=== PATIENT | male | born 1980 | race Two or more races ===

== ENCOUNTER 2025-06-17 10:38 | Inpatient (IN) | payer MEDICAID, OTHER ==
[~2025-06-17] VITALS: Ht 162.6 cm; Wt 117.8 kg
--- NOTE | 2025-06-17 10:55 | ED.PDOC ---
GI ASSESSMENT HPI Comments 44 y/o M, presents to the ED for CC of abdominal pain. Patient states, he has been experiencing symptoms of abdominal pain with associated distension, nausea, and vomiting x1day. Patient describes, emesis to be "yellow" in appearance. Patient denies melena, fever, chills, or diarrhea. Chief Complaint: Abdominal Pain Time Seen by MD: 10:55 Reviewed Notes: Nurses Notes, Medications, Allergies Allergies: Coded Allergies: NO KNOWN ALLERGIES (Unverified , 06/17/25) Information Source: Patient Mode of Arrival: Ambulatory Timing: Days Duration: Since onset Prehospital treatment: None Vomitus: Watery Stool: Normal Severity: Moderate Recent: None Recent Hx of: Abdominal Operations Pain Location: Diffuse Modifying Factors: Nothing Associated sign and symptoms: Nausea, Vomiting, Abdominal Pain Past Medical History PAST MEDICAL HISTORY: Denies Surgical History (Other): Kidney transplant recipient Family History Family History: Unknown Social History Smoker: Non-Smoker Alcohol: Denies ETOH Use Drugs: Denies Drug Use Lives In: Home Constitutional: denies: chills, diaphoresis, fatigue, fever, malaise, sweats, weakness, others EENTM: denies: blurred vision, double vision, ear bleeding, ear discharge, ear drainage, ear pain, ear ringing, eye pain, eye redness, hearing loss, mouth pain, mouth swelling, nasal discharge, nose bleeding, nose congestion, nose pain, photophobia, tearing, throat pain, throat swelling, voice changes, others Respiratory: denies: cough, hemoptysis, orthopnea, SOB at rest, shortness of breath, SOB with excertion, stridor, wheezing, others Cardiovascular: denies: chest pain, dizzy spells, diaphoresis, Dyspnea on exertion, edema, irregular heart beat, left arm pain, lightheadedness, palpitations, PND, syncope, others Gastrointestinal: reports: abdominal pain, nausea, vomiting; denies: abdomen distended, blood streaked bowels, constipated, diarrhea, dysphagia, difficulty swallowing, hematemesis, melena, poor appetite, poor fluid intake, rectal bleeding, rectal pain, others Genitourinary: denies: burning, dysuria, flank pain, frequency, hematuria, incontinence, penile discharge, penile sore, pain, testicle pain, testicle swelling, urgency, others Neurological: denies: dizziness, fainting, headache, left sided numbness, left sided weakness, numbness, paresthesia, pre-existing deficit, right sided numbness, right sided weakness, seizure, speech problems, tingling, tremors, weakness, others Musculoskeletal: denies: back pain, gout, joint pain, joint swelling, muscle pain, muscle stiffness, neck pain, others Integumetry: denies: bruises, change in color, change in hair/nails, dryness, laceration, lesions, lumps, rash, wounds, others Allergic/Immunocompromised: denies: Difficulty Healing, Frequent Infections, Hives, Itching, others Hematologic/Lymphatic: denies: anemia, blood clots, easy bleeding, easy bruising, swollen glands, others Endocrine: denies: excessive hunger, excessive sweating, excessive thirst, excessive urination, flushing, intolerance to cold, intolerance to heat, unexplained weight gain, unexplained weight loss, others Psychiatric: denies: anxiety, bipolar disorder, depression, hopeless, panic disorder, schizophrenia, sleepless, suicidal, others All Other Systems: Reviewed and Negative Physical Exam General Appearance: No Apparent Distress, Normal HEENT: Normal ENT Inspection, Pharynx Normal Neck: Full Range of Motion, Non-Tender, Normal, Normal Inspection Respiratory: Chest Non-Tender, Lungs Clear, No Accessory Muscle Use, No Respiratory Distress, Normal Breath Sounds Cardiovascular: No Edema, No Murmur, No Gallop, Normal Peripheral Pulses, Regular Rate/Rhythm Breast Exam: Deferred Gastrointestinal: Diffuse, No Organomegaly, No Pulsatile Mass, Normal Bowel Sounds, Soft, Tenderness Genitalia: Deferred Pelvic: Deferred Rectal: Deferred Extremities: No calf tenderness, Normal capillary refill, Normal inspection, Normal range of motion, Non-tender, No pedal edema Musculoskeletal : Apperance: Normal Neurologic: Alert, temperer II-XII nml as Tested, No Motor Deficits, Normal Affect, Normal Mood, No Sensory Deficits Cerebellar Function: Normal Reflexes: Normal Skin: Dry, Normal Color, Warm Lymphatic: No Adenopathy Was a procedure done? Was a procedure done?: No GI differential Dx Differential Diagnosis: Gastritis/PUD, Gastroenteritis, Electrolyte Imbalance, Bacterial, Viral X-Ray, Labs, Meds, VS Vital Signs Date Time Temp Pulse Resp B/P (MAP) Pulse Ox O2 Delivery O2 Flow Rate FiO2 06/17/25 13:30 98.7 87 14 167/97 (120) 97 98.7 06/17/25 13:25 87 14 167/97 06/17/25 11:42 104 20 171/100 06/17/25 11:30 104 20 96 Room Air* 0 21 06/17/25 11:26 98.4 100 20 171/100 (123) 98 98.4 06/17/25 10:40 98.8 112 15 189/115 98 98.8 Lab Test 06/17/25 13:19 06/17/25 11:35 Range/Units Prothrombin Time Pending Prothrombin Time INR Pending Activated Partial Thromboplast Time Pending Lactic Acid Level Pending White Blood Count 18.4 H 4.4-10.8 10^3/uL Red Blood Count 5.49 4.5-5.90 10^6/uL Hemoglobin 15.2 13.5-17.5 g/dL Hematocrit 45.1 41.0-53.0 % Mean Corpuscular Volume 82.2 80.0-100.0 fL Mean Corpuscular Hemoglobin 27.7 L 28.0-32.0 pg Mean Corpuscular Hemoglobin Concent 33.7 32.0-36.0 g/dL Red Cell Distribution Width 14.0 11.8-14.3 % Platelet Count 267 140-450 10^3/uL Mean Platelet Volume 9.6 6.9-10.8 fL Neutrophils (%) (Auto) 93.2 H 37.0-80.0 % Lymphocytes (%) (Auto) 3.7 L 10.0-50.0 % Monocytes (%) (Auto) 2.4 0.0-12.0 % Eosinophils (%) (Auto) 0.1 0.0-7.0 % Basophils (%) (Auto) 0.6 0.0-2.0 % Neutrophils # (Auto) 17.2 H 1.6-8.6 10 ^3/uL Lymphocytes # (Auto) 0.7 0.4-5.4 10 ^3/uL Monocytes # (Auto) 0.4 0-1.3 10 ^3/uL Eosinophils # (Auto) 0 0-0.8 10 ^3/uL Basophils # (Auto) 0.1 0-0.2 10 ^3/uL Nucleated Red Blood Cells 0.1 % Sodium Level 139 136-145 mmol/L Potassium Level 4.5 3.5-5.1 mmol/L Chloride Level 102 98-107 mmol/L Carbon Dioxide Level 22 20-31 mmol/L Anion Gap 15 5-15 Blood Urea Nitrogen 28 H 9-23 mg/dL Creatinine 2.35 H 0.700-1.30 mg/dL Glomerular Filtration Rate Calc 34 >90 mL/min BUN/Creatinine Ratio 11.9 10.0-20.0 Serum Glucose 193 H 74-106 mg/dL Calcium Level 9.8 8.7-10.4 mg/dL Total Bilirubin 0.5 0.2-1.0 mg/dL Aspartate Amino Transferase (AST) 19 13-40 U/L Alanine Aminotransferase (ALT) 19 7-40 U/L Alkaline Phosphatase 207 H 46-116 U/L Troponin I High Sensitivity < 3 L </=54 ng/L Total Protein 8.0 5.7-8.2 g/dL Albumin 4.6 3.2-4.8 g/dL Lipase 37 12-53 U/L Current Medications Medications (Trade) Dose Ordered Sig/Feng Route Start Time Stop Time Status Last Admin Sodium Chloride 1,000 ml @ 1,000 mls/hr Q1H ONCE IV 06/17/25 11:30 06/17/25 12:29 DC 06/17/25 11:42 Morphine Sulfate 4 mg ONCE ONCE IV 06/17/25 11:30 06/17/25 11:31 DC 06/17/25 11:42 Ondansetron HCl (Zofran) 4 mg ONCE ONCE IV 06/17/25 11:30 06/17/25 11:31 DC 06/17/25 11:42 Lactated Ringer's 1,800 ml @ 1,800 mls/hr ONCE ONCE IV 06/17/25 12:30 06/17/25 13:29 DC 06/17/25 13:20 Cefepime HCl 50 ml @ 50 mls/hr ONCE ONCE IV 06/17/25 13:30 06/17/25 14:29 06/17/25 13:[address] [address] Ph: [phone] DIAGNOSTIC IMAGING Diagnostic Imaging Report : [id number] Signed PATIENT: MARÍA GROSS ACCT: [id number] UNIT: [id number] : 1980 LOC: ER ROOM / BED: / AGE / SEX: 44 / M ADM STATUS: REG ER SERVICE 1225 ORDERING PHYSICIAN: YURI HUANG MD PROCEDURE(s): ABPL - CT AB PEL WO CON-NO ORAL OR IV REASON: abdominal pain ORDER NUMBER(s): [id number], ACCESSION NUMBER(s): [id number] Exam: CT CT AB PEL WO CON-NO ORAL OR IV History: abdominal pain Comparison Study: None Technique: Multidetector spiral CT of the abdomen and pelvis was performed from lung bases to pubic symphysis. Imaging was performed without intravenous contrast. Coronal and sagittal multiplanar reformats were obtained from the axial data set by the technologist. Radiation Dose : 1. Abdomen/Pelvis: CTDIvol 24.97 mGy, DLP 1428.54 mGy*cm. Findings: Evaluation of vasculature and solid organs is limited due to lack of intravenous contrast use. Lung Bases: Lung bases are clear. Visualized portions of the heart and pericardium are unremarkable. Liver: The liver is normal in size. No focal lesions. Gallbladder and Biliary Tree: The gallbladder is surgically absent. No intrahepatic or extrahepatic biliary ductal dilatation. Spleen: Unremarkable Pancreas: The pancreas is grossly unremarkable. Adrenal Glands: Unremarkable Kidneys: Bilateral [place] renal atrophy. Right lower quadrant renal transplant. No hydronephrosis. GI tract: The stomach is grossly normal in appearance. There are dilated fluid- filled small bowel loops measuring up to 3.6 cm. There is abrupt transition to collapsed small bowel loops in the right lower quadrant indicating a transition point. The transition is adjacent to the right renal transplant. Scattered stool throughout the colon. No acute appendicitis. Peritoneum/mesentery/retroperitoneum. There is fat stranding in the right lower quadrant. No evidence of free intraperitoneal air. No ascites. No evidence of suspicious lymphadenopathy. Abdominal Wall: Unremarkable. Vasculature: The visualized abdominal aorta is normal in size and caliber. Evaluation of abdominal and pelvic vessels is limited due to lack of intravenous contrast. Urinary Bladder: Grossly unremarkable for degree of distention. Pelvic Organs: Unremarkable Musculoskeletal: No aggressive focal bony lesions, acute fractures or dislocation. Sclerosis in the right femoral head. IMPRESSION: 1. Small bowel obstruction with transition point in the right lower quadrant adjacent to the right renal transplant. 2. Right femoral head sclerosis may represent avascular necrosis. 3. No hydronephrosis or acute abnormality in the right lower quadrant renal transplant. 4. Cholecystectomy. ATED BY: ANNIE WILSON MD DICTATED DATE/TIME: 06/17/25 130 SIGNED BY: ANNIE WILSON MD SIGNED DATE/TIME: 06/17/25 130 CC: Time of 1ST Reevaluation: 11:25 Reevaluation 1ST: Unchanged Patient Education/Counseling: Diagnosis, Treatment Family Education/Counseling: No Family Present SEPSIS Sepsis Screen Date sepsis recognized/suspect: Jun 17, 2025 Time Sepsis recognized/suspect: 104 Recent Procedure: No On Antibiotic Therapy: No Respiratory Rate >20: No Heart Rate >90: No Temp<36 C (96.8 F) or >38.3 C: No SBP <90 or MAP <65 mmHG: No New Acute Mental Status Change: No Is the patient on CPAP, BIPAP,: No Physician Orders PTPTT (06/17/25 12:25) Blood Culture (06/17/25 12:25) Lactic Acid W/ Reflex Order (06/17/25 14:00) Notify Md If Map <65 Or Bp<90 (06/17/25 12:25) If Map<65 Start Vasopressor (06/17/25 12:25) Sepsis Reassesment After Fluid (06/17/25 13:25) Ct Ab Pel Wo Con-No Oral Or Iv (06/17/25 12:25) Cefepime 1gm/50ml (Maxipime 1gm/50ml) (06/17/25 13:30) Ng To Lis (06/17/25 14:03) * Surgical Consult (06/17/25 ) Vital Signs Date Time Temp Pulse Resp B/P (MAP) Pulse Ox O2 Delivery O2 Flow Rate FiO2 06/17/25 13:30 98.7 87 14 167/97 (120) 97 98.7 06/17/25 13:25 87 14 167/97 06/17/25 11:42 104 20 171/100 06/17/25 11:30 104 20 96 Room Air* 0 21 06/17/25 11:26 98.4 100 20 171/100 (123) 98 98.4 06/17/25 10:40 98.8 112 15 189/115 98 98.8 Laboratory Tests Test 06/17/25 11:35 06/17/25 13:19 White Blood Count 18.4 10^3/uL (4.4-10.8) H Lactic Acid Level Pending Medications Medications Dose Ordered Sig/Feng Route Start Time Stop Time Status Last Admin Dose Admin Cefepime HCl 50 ml @ 50 mls/hr ONCE ONCE IV 06/17/25 13:30 06/17/25 14:29 06/17/25 13:25 Lactated Ringer's 1,800 ml @ 1,800 mls/hr ONCE ONCE IV 06/17/25 12:30 06/17/25 13:29 DC 06/17/25 13:20 Morphine Sulfate 4 mg ONCE ONCE IV 06/17/25 11:30 06/17/25 11:31 DC 06/17/25 11:42 Ondansetron HCl 4 mg ONCE ONCE IV 06/17/25 11:30 06/17/25 11:31 DC 06/17/25 11:42 Sodium Chloride 1,000 ml @ 1,000 mls/hr Q1H ONCE IV 06/17/25 11:30 06/17/25 12:29 DC 06/17/25 11:42 Departure 1 Departure Time of Disposition: 14:04 (Patient presented with abdominal pain that was concerning for possible appendicits, gastritis, cholecystitis, colitis, gastroenteritis, sbo, or orther possible surgical emergency. Data: 1. I ordered and reviewed the result of at least 3 labs including a CBC, BMP, and Urinalysis. 2. I independently interpreted the following tests: CT Abdomen and Pelvis is concerning for small bowel obstruction.Risk:This patient has a high risk of morbidity due to further diagnostic testing or treatment and may suffer from an acute abdominal process disorder. Workup reveals small bowel obstruction and concern for sepsis and patient should be admitted for further workup. and possible expert consultation. ) Impression: Primary Impression: Small bowel obstruction Additional Impression: Suspected sepsis Disposition: ADMITTED INPATIENT Admit to: Tele Condition: Guarded Critical Care Note Critical Care Time?: Yes Critical care comment: Small-bowel obstruction and suspected sepsis Authorized and Performed by: Yuri Huang MD Total critical care time: Approximately 41 minutes Due to a high probability of clinically significant, life threatening deterioration, the patient required my highest level of preparedness to intervene emergently and I personally spent this critical care time directly and personally managing the patient. This critical care time included obtaining a history; examining the patient; pulse oximetry; ordering and review of studies; arranging urgent treatment with development of a management plan; evaluation of patient's response to treatment; frequent reassessment; and, discussions with other providers. This critical care time was performed to assess and manage the high probability of imminent, life-threatening deterioration that could result in multi-organ failure. It was exclusive of separately billable procedures and treating other patients and teaching time. Please see my other sections and the rest of the note for further information on patient assessment and treatment. Stability Stability form required: No Heart Score Heart Score: Heart Score Response (Comments) Value History N/A 0 EKG N/A 0 Age N/A 0 Risk Factors N/A 0 Troponin N/A 0 Total 0 I personally scribed for YURI HUANG MD ([email or web address]) on 06/17/25 at 10:55. Electronically submitted by Bailey Greene ([email or web address]). I personally scribed for YURI HUANG MD ([email or web address]) on 06/17/25 at 12:04. Electronically submitted by Bailey Greene ([email or web address]). I personally scribed for YURI HUANG MD ([email or web address]) on 06/17/25 at 14:03. Electronically submitted by Bailey Greeen ([email or web address]). YURI HUANG MD Jun 17, 2025 10:55
[2025-06-17 11:30] VITALS: PULSE 104; RESP 20; O2SAT 96
[2025-06-17] MEDS: SODIUM CHLORIDE 0.9% 1,000 ML IV ONE (11:42)
[2025-06-17] MEDS: MORPHINE SULFATE 4 MG/ML SYR/VIAL IV ONE (11:42)
[2025-06-17] MEDS: ONDANSETRON HCL 4 MG/2 ML VIAL IV ONE (11:42)
[2025-06-17 11:57] LABS: Hematocrit 45.1 % (41.0-53.0); Hemoglobin 15.2 g/dL (13.5-17.5); Mean Corpuscular Hemoglobin 27.7 pg (28.0-32.0); Mean Corpuscular Volume 82.2 fL (80.0-100.0); Nucleated Red Blood Cells % 0.1 %
[2025-06-17 12:14] LABS: Alanine Aminotransferase 19 U/L (7-40); Albumin 4.6 g/dL (3.2-4.8); Alkaline Phosphatase 207 U/L (46-116); Anion Gap 15 (5-15); BUN/Creatinine Ratio 11.9 (10.0-20.0); Bilirubin, Total 0.5 mg/dL (0.2-1.0); Blood Urea Nitrogen 28 mg/dL (9-23); Calcium 9.8 mg/dL (8.7-10.4); Carbon Dioxide 22 mmol/L (20-31); Chloride 102 mmol/L (98-107); Glucose 193 mg/dL (74-106); Lipase 37 U/L (12-53); Potassium 4.5 mmol/L (3.5-5.1); Sodium 139 mmol/L (136-145); Total Protein 8.0 g/dL (5.7-8.2)
--- NOTE | 2025-06-17 13:03 | DVH ---
Exam: CT CT AB PEL WO CON-NO ORAL OR IV History: abdominal pain Comparison Study: None Technique: Multidetector spiral CT of the abdomen and pelvis was performed from lung bases to pubic symphysis. Imaging was performed without intravenous contrast. Coronal and sagittal multiplanar reformats were obtained from the axial data set by the technologist. Radiation Dose : 1. Abdomen/Pelvis: CTDIvol 24.97 mGy, DLP 1428.54 mGy*cm. Findings: Evaluation of vasculature and solid organs is limited due to lack of intravenous contrast use. Lung Bases: Lung bases are clear. Visualized portions of the heart and pericardium are unremarkable. Liver: The liver is normal in size. No focal lesions. Gallbladder and Biliary Tree: The gallbladder is surgically absent. No intrahepatic or extrahepatic biliary ductal dilatation. Spleen: Unremarkable Pancreas: The pancreas is grossly unremarkable. Adrenal Glands: Unremarkable Kidneys: Bilateral lower [place] renal atrophy. Right lower quadrant renal transplant. No hydronephrosis. GI tract: The stomach is grossly normal in appearance. There are dilated fluid- filled small bowel loops measuring up to 3.6 cm. There is abrupt transition to collapsed small bowel loops in the right lower quadrant indicating a transition point. The transition is adjacent to the right renal transplant. Scattered stool throughout the colon. No acute appendicitis. Peritoneum/mesentery/retroperitoneum. There is fat stranding in the right lower quadrant. No evidence of free intraperitoneal air. No ascites. No evidence of suspicious lymphadenopathy. Abdominal Wall: Unremarkable. Vasculature: The visualized abdominal aorta is normal in size and caliber. Evaluation of abdominal and pelvic vessels is limited due to lack of intravenous contrast. Urinary Bladder: Grossly unremarkable for degree of distention. Pelvic Organs: Unremarkable Musculoskeletal: No aggressive focal bony lesions, acute fractures or dislocation. Sclerosis in the right femoral head. IMPRESSION: 1. Small bowel obstruction with transition point in the right lower quadrant adjacent to the right renal transplant. 2. Right femoral head sclerosis may represent avascular necrosis. 3. No hydronephrosis or acute abnormality in the right lower quadrant renal transplant. 4. Cholecystectomy.
[2025-06-17] MEDS: CEFEPIME 1GM/50ML 50 ML IV ONE ×2 (13:19→13:25)
[2025-06-17] MEDS: LACTATED RINGER'S 1,800 ML IV ONE (13:20)
[2025-06-17 14:15] LABS: INR 0.98 (0.9-1.15); Partial Thromboplastin Time 24.4 SEC (24.5-34.5); Prothrombin Time 10.4 sec (9.3-11.8)
[2025-06-17 14:41] LABS: Lactic Acid w/Reflex 2.3 mmol/L (0.4-2.0)
[2025-06-17] MEDS ORDERED: MORPHINE SULFATE INJ 2 MG/ml SYRG IV PRN (15:30)
--- NOTE | 2025-06-17 17:00 | DVHINCON2 ---
Consultation - Surgical Date Seen: Jun 17, 2025 Referring Physician Reason for Consultation SBO History of Present Illness History of Present Illness Mr. Mederos is a 44-year-old male who presented to the ED with abdominal distention, nausea, vomiting x1 day. Patient has a prior history of small-bowel obstruction for which they did a ex lap and lysis of adhesions. States that before presenting to the hospital his last bowel movement was 2 days, patient regularly has daily BMs. Patient also states that he had a large bowel movement in the a.m. hours while in the hospital. States that his belly is less distended and not painful anymore, he is also passing flatus. Denies any blood in the vomit or stool. Patient also has a history of kidney transplantation, and states he does not have any urine. Patient is currently on sirolimus and mycophenolate. Past Medical/Surgical History Past Medical/Surgical History Past medical history kidney transplant, immunosuppression, SBO, acute rejection of transplant Past surgical history right-sided kidney transplant (2006), SBO due to adhesions and status post exlap Family and Social History Family and Social History Family history noncontributory ETOH occasional T Ob occasional Drugs denies Allergies and medications Allergies: Coded Allergies: NO KNOWN ALLERGIES (Unverified , 06/17/25) Review of systems Review of Systems: Deferred Examination Vital signs Vital Signs Date Time Temp Pulse Resp B/P (MAP) Pulse Ox O2 Delivery O2 Flow Rate FiO2 06/17/25 15:15 98.3 73 15 151/78 (102) 98 98.3 06/17/25 11:30 Room Air* 0 21 Medications Current Medications Medications (Trade) Dose Ordered Sig/Feng Route PRN Reason Start Time Stop Time Status Last Admin Sodium Chloride 1,000 ml @ 100 mls/hr Q10H IV 06/17/25 15:30 Morphine Sulfate 2 mg Q4HPRN PRN IV SEVERE PAIN (7-10 PAIN SCALE) 06/17/25 15:30 Ceftriaxone Sodium 50 ml @ 100 mls/hr DAILY@09 IV 06/18/25 09:00 Metronidazole 100 ml @ 100 mls/hr Q8HR IV 06/17/25 15:30 06/17/25 15:55 Mycophenolate Mofetil (Cellcept) 500 mg BID PO 06/17/25 22:00 Patient Own Medication 1 DAILY PO 06/18/25 10:00 Laboratory Labs Test 06/17/25 15:48 06/17/25 13:35 06/17/25 13:19 06/17/25 11:35 Range/Units Lactic Acid Level 1.9 0.4-2.0 mmol/L Hemoglobin A1c 5.5 <5.7 % A1C Prothrombin Time 10.4 9.3-11.8 sec Prothrombin Time INR 0.98 0.9-1.15 Activated Partial Thromboplast Time 24.4 L 24.5-34.5 SEC White Blood Count 18.4 H 4.4-10.8 10^3/uL Red Blood Count 5.49 4.5-5.90 10^6/uL Hemoglobin 15.2 13.5-17.5 g/dL Hematocrit 45.1 41.0-53.0 % Mean Corpuscular Volume 82.2 80.0-100.0 fL Mean Corpuscular Hemoglobin 27.7 L 28.0-32.0 pg Mean Corpuscular Hemoglobin Concent 33.7 32.0-36.0 g/dL Red Cell Distribution Width 14.0 11.8-14.3 % Platelet Count 267 140-450 10^3/uL Mean Platelet Volume 9.6 6.9-10.8 fL Neutrophils (%) (Auto) 93.2 H 37.0-80.0 % Lymphocytes (%) (Auto) 3.7 L 10.0-50.0 % Monocytes (%) (Auto) 2.4 0.0-12.0 % Eosinophils (%) (Auto) 0.1 0.0-7.0 % Basophils (%) (Auto) 0.6 0.0-2.0 % Neutrophils # (Auto) 17.2 H 1.6-8.6 10 ^3/uL Lymphocytes # (Auto) 0.7 0.4-5.4 10 ^3/uL Monocytes # (Auto) 0.4 0-1.3 10 ^3/uL Eosinophils # (Auto) 0 0-0.8 10 ^3/uL Basophils # (Auto) 0.1 0-0.2 10 ^3/uL Nucleated Red Blood Cells 0.1 % Sodium Level 139 136-145 mmol/L Potassium Level 4.5 3.5-5.1 mmol/L Chloride Level 102 98-107 mmol/L Carbon Dioxide Level 22 20-31 mmol/L Anion Gap 15 5-15 Blood Urea Nitrogen 28 H 9-23 mg/dL Creatinine 2.35 H 0.700-1.30 mg/dL Glomerular Filtration Rate Calc 34 >90 mL/min BUN/Creatinine Ratio 11.9 10.0-20.0 Serum Glucose 193 H 74-106 mg/dL Calcium Level 9.8 8.7-10.4 mg/dL Total Bilirubin 0.5 0.2-1.0 mg/dL Aspartate Amino Transferase (AST) 19 13-40 U/L Alanine Aminotransferase (ALT) 19 7-40 U/L Alkaline Phosphatase 207 H 46-116 U/L Troponin I High Sensitivity < 3 L </=54 ng/L Total Protein 8.0 5.7-8.2 g/dL Albumin 4.6 3.2-4.8 g/dL Lipase 37 12-53 U/L Examination: GENERAL:Normal (AAO x3), HEENT:Normal (NG tube in place with minimal output), LUNGS:Normal (Nonlabored breathing with symmetric expansion), ABDOMEN:Normal (Globose, midline scar healed, right lower quadrant scar healed, soft, depressible, nontender) Problem List/Assessment/Plan Problems: (1) Small bowel obstruction (2) Suspected sepsis Assessment and Plan Mr. Mederos is a 44-year-old male who presented with what appears to be a partial small bowel obstruction, he has a history of small-bowel obstruction for which he received an ex lap in the past. Currently has a NG tube placed and he had a large bowel movement while in the ED. I reviewed the CT scan and there appears to be mildly distended small bowel loops with a possible transition point in the right lower quadrant. Patient also presented with a leukocytosis and elevated blood sugar level, patient denies being diabetic, also his creatinine is 2.35 and he states is normal creatinine is in the 2. I want to rule out UTI versus transplant rejection on this patient. 1. NG tube to LIS 2. NPO 3. No narcotics for pain control, utilizing Tylenol 4. Possible small bowel follow-through in the morning 5. UA 6. Kidney ultrasound Plan discussed with Plan discussed with: Patient Visit Coding Surgery Date of Service if different f: Jun 17, 2025 Billing Provider: ADAM ROLDAN MD Surgery Visit Codes: 93637 - INP CONSULT <110 MIN ADAM ROLDAN MD Jun 17, 2025 17:00
--- NOTE | 2025-06-17 17:08 | DVH ---
EXAM: XY CHEST PORTABLE HISTORY: NG TUBE PLACEMENT VERIFICATION TECHNIQUE: 1 view of the chest COMPARISON: None FINDINGS/IMPRESSION: LUNGS: No pleural effusion, consolidation, or pneumothorax. MEDIASTINUM: Unremarkable. BONES: No acute osseous abnormality. OTHER: Enteric tube extending into the proximal stomach.
[2025-06-17] MEDS ORDERED: ACETAMINOPHEN 325 MG TAB PO PRN (17:30)
[2025-06-17] MEDS: SOD CHL 0.45% 1,000 ML IV SCH (17:52)
--- NOTE | 2025-06-17 17:55 | DVH ---
INDICATION: Transplant evaluation TECHNIQUE: Multiple real-time, duplex, and color Doppler sonographic images of the kidney and renal vasculature were obtained. Color flow and spectral waveform analysis was performed. COMPARISON: None FINDINGS: The transplant kidney is located in the right iliac fossa. It measures 13.5 x 6.9 x 5.7 cm in length. The renal contour, cortical thickness, and echogenicity are normal. There no masses, calcifications, hydronephrosis, or perinephric fluid identified. The vessels were interrogated with color and duplex Doppler. Peak systolic velocity in the transplanted renal artery was measured at 191 cm/sec near the anastomosis. End-diastolic velocity measures 23.2 cm/sec near the anastomosis. Transplant renal vein velocity measured 14.1 cm/sec. IMPRESSION: 1. Right renal transplant kidney appears within normal limits with no hydronephrosis or other abnormality. 2. Peak systolic velocities at the anastomosis of the transplant renal artery is within normal limits. No evidence of stenosis or thrombosis in the transplant renal vein.
--- NOTE | 2025-06-17 18:04 | DVHHP2 ---
History of Present Illness History of Present Illness 44-year-old male with past medical history of hypoplastic kidneys s/p kidney transplant (2006, ), prior peritoneal dialysis and hemodialysis, and history of small bowel obstruction requiring laparotomy in 2013. Patient moved to the area 1.5 months ago and has been taking mycophenolate 1 g BID and sirolimus 2 mg daily with good adherence. He now reports abdominal pain, distension, nausea, and vomiting. He continues to have bowel movements and passed flatus both at home and in the ED. No fevers. On arrival, he was tachycardic but improved to HR 85; blood pressure was elevated at 138/60; he is afebrile. Labs show WBC 18.5, creatinine 2.3, lactate initially 2.3 then 1.9, alkaline phosphatase 207; coagulation studies unremarkable. CT abdomen shows small bowel obstruction with a transition point in the right lower quadrant adjacent to the right renal transplant, and right femoral head sclerosis suggestive of avascular necrosis. He is s/p cholecystectomy. Renal ultrasound shows normal-appearing right renal transplant without hydronephrosis or evidence of stenosis or thrombosis. Surgery recommended NG tube, NPO, no narcotics, and possible small bowel follow-through. He was started on ceftriaxone and metronidazole. UA and nephrology evaluation are pending. Past Medical History Hypoplastic kidneys, kidney transplant 2007 ([place]), prior peritoneal dialysis, prior hemodialysis, history of small bowel obstruction, avascular necrosis of the right femoral head (per imaging), history of gallbladder disease s/p cholecystectomy. Past Surgical History Kidney transplant 2006, cholecystectomy, laparotomy for SBO in 2013. Social History No tobacco, no alcohol, no drugs. Lives at home. Allergies NKDA. Home Medications Mycophenolate 1 g BID, Sirolimus 2 mg daily. Review of Systems ROS negative except as stated in HPI. Review of Systems Allergies: Coded Allergies: NO KNOWN ALLERGIES (Unverified , 06/17/25) Medications Current Medications Medications Dose Ordered Sig/Feng Route Start Time Stop Time Status Last Admin Dose Admin Sodium Chloride 1,000 ml @ 100 mls/hr Q10H IV 06/17/25 15:30 06/17/25 17:52 100 MLS/HR Ceftriaxone Sodium 50 ml @ 100 mls/hr DAILY@09 IV 06/18/25 09:00 Metronidazole 100 ml @ 100 mls/hr Q8HR IV 06/17/25 15:30 06/17/25 15:55 100 MLS/HR Mycophenolate Mofetil 500 mg BID PO 06/17/25 22:00 Patient Own Medication 1 DAILY PO 06/18/25 10:00 Acetaminophen 650 mg Q4HP PRN PO 06/17/25 17:30 Exam Vital Signs Vital Signs Date Time Temp Pulse Resp B/P (MAP) Pulse Ox O2 Delivery O2 Flow Rate FiO2 06/17/25 17:08 77 06/17/25 15:15 98.3 15 151/78 (102) 98 98.3 06/17/25 11:30 Room Air* 0 21 Exam General: Alert, no acute distress. Head: Atraumatic. Eyes: Anicteric. Neck: Supple. Lungs: Clear bilaterally. Heart: Regular rate and rhythm. Abdomen: Distended, tender to palpation, hypoactive bowel sounds. No peritoneal signs. Extremities: No edema. Neuro: Grossly nonfocal. Skin: Warm and dry. Labs/Xrays Labs Test 06/17/25 15:48 06/17/25 13:35 06/17/25 13:19 06/17/25 11:35 Range/Units Lactic Acid Level 1.9 0.4-2.0 mmol/L Hemoglobin A1c 5.5 <5.7 % A1C Prothrombin Time 10.4 9.3-11.8 sec Prothrombin Time INR 0.98 0.9-1.15 Activated Partial Thromboplast Time 24.4 L 24.5-34.5 SEC White Blood Count 18.4 H 4.4-10.8 10^3/uL Red Blood Count 5.49 4.5-5.90 10^6/uL Hemoglobin 15.2 13.5-17.5 g/dL Hematocrit 45.1 41.0-53.0 % Mean Corpuscular Volume 82.2 80.0-100.0 fL Mean Corpuscular Hemoglobin 27.7 L 28.0-32.0 pg Mean Corpuscular Hemoglobin Concent 33.7 32.0-36.0 g/dL Red Cell Distribution Width 14.0 11.8-14.3 % Platelet Count 267 140-450 10^3/uL Mean Platelet Volume 9.6 6.9-10.8 fL Neutrophils (%) (Auto) 93.2 H 37.0-80.0 % Lymphocytes (%) (Auto) 3.7 L 10.0-50.0 % Monocytes (%) (Auto) 2.4 0.0-12.0 % Eosinophils (%) (Auto) 0.1 0.0-7.0 % Basophils (%) (Auto) 0.6 0.0-2.0 % Neutrophils # (Auto) 17.2 H 1.6-8.6 10 ^3/uL Lymphocytes # (Auto) 0.7 0.4-5.4 10 ^3/uL Monocytes # (Auto) 0.4 0-1.3 10 ^3/uL Eosinophils # (Auto) 0 0-0.8 10 ^3/uL Basophils # (Auto) 0.1 0-0.2 10 ^3/uL Nucleated Red Blood Cells 0.1 % Sodium Level 139 136-145 mmol/L Potassium Level 4.5 3.5-5.1 mmol/L Chloride Level 102 98-107 mmol/L Carbon Dioxide Level 22 20-31 mmol/L Anion Gap 15 5-15 Blood Urea Nitrogen 28 H 9-23 mg/dL Creatinine 2.35 H 0.700-1.30 mg/dL Glomerular Filtration Rate Calc 34 >90 mL/min BUN/Creatinine Ratio 11.9 10.0-20.0 Serum Glucose 193 H 74-106 mg/dL Calcium Level 9.8 8.7-10.4 mg/dL Total Bilirubin 0.5 0.2-1.0 mg/dL Aspartate Amino Transferase (AST) 19 13-40 U/L Alanine Aminotransferase (ALT) 19 7-40 U/L Alkaline Phosphatase 207 H 46-116 U/L Troponin I High Sensitivity < 3 L </=54 ng/L Total Protein 8.0 5.7-8.2 g/dL Albumin 4.6 3.2-4.8 g/dL Lipase 37 12-53 U/L SEPSIS Sepsis Screen Date sepsis recognized/suspect: Jun 17, 2025 Time Sepsis recognized/suspect: 1130 Recent Procedure: No On Antibiotic Therapy: No Respiratory Rate >20: No Heart Rate >90: Yes Temp<36 C (96.8 F) or >38.3 C: No SBP <90 or MAP <65 mmHG: No New Acute Mental Status Change: No Is the patient on CPAP, BIPAP,: No Physician Orders Blood Culture (06/17/25 12:25) Notify Md If Map <65 Or Bp<90 (06/17/25 12:25) If Map<65 Start Vasopressor (06/17/25 12:25) Sepsis Reassesment After Fluid (06/17/25 13:25) Ct Ab Pel Wo Con-No Oral Or Iv (06/17/25 12:25) Ng To Lis (06/17/25 14:03) * Surgical Consult (06/17/25 ) Admit (06/17/25 15:23) Code Status (06/17/25 15:23) Vital Signs .PER UNIT PROTOCOL (06/17/25 15:23) Review Orders With Adm.Md (06/17/25 15:23) Npo (Nothing By Mouth) Diet (06/17/25 Dinner) Notify Md Of Changes From Base (06/17/25 15:23) Advance Directive (06/17/25 15:23) Urinalysis (06/17/25 15:23) Sod Chl 0.45% (Sodium Chloride 0.45% Via (06/17/25 15:30) Patient Condition (06/17/25 15:23) Allergies (06/17/25 15:23) Drug Screen (06/17/25 15:23) Ambulate Every 4hours Q4H (06/17/25 15:23) Oxygen By Nasal Cannula (06/17/25 15:23) Stat Ekg For Chest Pain (06/17/25 15:23) Notify Md Of Changes From Base (06/17/25 15:23) Loading Dock Hand For 24 Hours (06/17/25 15:23) Emergency Dysrhythmia Protocol (06/17/25 15:23) Rhythm Strips Once Every Shift (06/17/25 15:23) Ceftriaxone 1gm/50ml (Rocephin) (06/18/25 09:00) Metronidazole 500mg/100ml (Flagyl 500mg/ (06/17/25 15:30) *[facility] (06/17/25 15:23) Mycophenolate Mofetil (Cellcept) (06/17/25 22:00) Patients Own Medication (06/18/25 10:00) Chest Portable (06/17/25 16:02) Renal Transplant (06/17/25 16:45) Complete Blood Count (06/18/25 04:00) Basic Metabolic Panel (06/18/25 04:00) Magnesium (06/18/25 04:00) Phosphorus (06/18/25 04:00) Lactic Acid W/ Reflex Order (06/18/25 04:00) Acetaminophen Tablet (Tylenol Tablet) (06/17/25 17:30) Vital Signs Date Time Temp Pulse Resp B/P (MAP) Pulse Ox O2 Delivery O2 Flow Rate FiO2 06/17/25 17:08 77 06/17/25 15:15 98.3 73 15 151/78 (102) 98 98.3 06/17/25 13:30 98.7 87 14 167/97 (120) 97 98.7 06/17/25 13:25 87 14 167/97 06/17/25 11:42 104 20 171/100 06/17/25 11:30 104 20 96 Room Air* 0 21 06/17/25 11:26 98.4 100 20 171/100 (123) 98 98.4 06/17/25 10:40 98.8 112 15 189/115 98 98.8 Laboratory Tests Test 06/17/25 11:35 06/17/25 13:19 06/17/25 15:48 White Blood Count 18.4 10^3/uL (4.4-10.8) H Lactic Acid Level 2.3 mmol/L (0.4-2.0) *H 1.9 mmol/L (0.4-2.0) Medications Medications Dose Ordered Sig/Feng Route Start Time Stop Time Status Last Admin Dose Admin Cefepime HCl 50 ml @ 50 mls/hr ONCE ONCE IV 06/17/25 13:30 06/17/25 14:29 DC 06/17/25 13:25 50 MLS/HR Lactated Ringer's 1,800 ml @ 1,800 mls/hr ONCE ONCE IV 06/17/25 12:30 06/17/25 13:29 DC 06/17/25 13:20 1,800 MLS/HR Metronidazole 100 ml @ 100 mls/hr Q8HR IV 06/17/25 15:30 06/17/25 15:55 100 MLS/HR Morphine Sulfate 4 mg ONCE ONCE IV 06/17/25 11:30 06/17/25 11:31 DC 06/17/25 11:42 4 MG Ondansetron HCl 4 mg ONCE ONCE IV 06/17/25 11:30 06/17/25 11:31 DC 06/17/25 11:42 4 MG Sodium Chloride 1,000 ml @ 100 mls/hr Q10H IV 06/17/25 15:30 06/17/25 17:52 100 MLS/HR Sodium Chloride 1,000 ml @ 1,000 mls/hr Q1H ONCE IV 06/17/25 11:30 06/17/25 12:29 DC 06/17/25 11:42 1,000 MLS/HR Assessment/Plan Assessment/Plan # Small bowel obstruction #Sepsis secondary to above Imaging shows a transition point in the right lower quadrant near the renal transplant, consistent with mechanical obstruction likely related to prior surgical adhesions. He is clinically stable without peritoneal signs. NG tube was placed, he is NPO, and surgery recommends conservative management with small bowel follow-through. Continue NG decompression, avoid narcotics, Tylenol only for pain, trend abdominal exams, and monitor for need of operative intervention. WBC 18.5 likely reactive to small bowel obstruction or mild early infection. He is afebrile and hemodynamically stable. Continue ceftriaxone and metronidazole, monitor CBC, trend vitals, and reassess based on clinical progression and UA results. # Kidney transplant status He is a renal transplant recipient on sirolimus and mycophenolate, and his renal ultrasound shows preserved graft flow without stenosis or hydronephrosis. His creatinine is elevated at 2.3, possibly due to dehydration or early PIA in the setting of SBO. Continue immunosuppression, monitor BMP and urine output, give gentle IV fluids, avoid nephrotoxins, and follow nephrology recommendations. # Acute kidney injury #Rule out acute rejection Creatinine is increased from unknown baseline, likely prerenal given abdominal pathology and NPO status. He is hemodynamically stable and lactate improved from 2.3 to 1.9. Continue fluid resuscitation as tolerated, strict I&Os, daily BMP, avoid nephrotoxins, and maintain perfusion. # Immunosuppressed state Due to chronic immunosuppressive therapy, he is at increased risk for infection and impaired wound healing. Maintaining regimen is essential to avoid rejection. Continue sirolimus and mycophenolate, monitor drug levels if needed, and ensure infection surveillance. No DVT prophylaxis in case surgery is needed Case discussed with Dr Krause Full code Plan discussed with: Patient, Other (rn) My Orders Orders - FLYNN R,DORON RESIDENT Procedure Category Date Status Time Admit ADMIT 06/17/25 Transmitted 15:23 Code Status CODE 06/17/25 Transmitted 15:23 Vital Signs [facility] 06/17/25 In Process 15:23 Review Orders With [facility] 06/17/25 In Process Adm. 15:23 Npo (Nothing By DIET 06/17/25 Transmitted Mouth) Diet Dinner Notify Md Of Changes [facility] 06/17/25 In Process From Base 15:23 Advance Directive [facility] 06/17/25 In Process 15:23 Urinalysis LAB 06/17/25 Logged 15:23 Sod Chl 0.45% (Sodium PHA 06/17/25 In Process Chloride 0.45% Via 15:30 Patient Condition ORDERS 06/17/25 Transmitted 15:23 Allergies [facility] 06/17/25 In Process 15:23 Drug Screen LAB 06/17/25 Logged 15:23 Ambulate Every 4hours [facility] 06/17/25 In Process 15:23 Oxygen By Nasal RT 06/17/25 Transmitted Cannula 15:23 Stat Ekg For Chest [facility] 06/17/25 In Process Pain 15:23 Notify Md Of Changes [facility] 06/17/25 In Process From Base 15:23 Loading Dock Hand For [facility] 06/17/25 In Process 24 Hours 15:23 Emergency Dysrhythmia [facility] 06/17/25 In Process Protocol 15:23 Rhythm Strips Once [facility] 06/17/25 In Process Every Shift 15:23 Ceftriaxone 1gm/50ml PHA 06/18/25 In Process (Rocephin) 09:00 Metronidazole PHA 06/17/25 In Process 500mg/100ml (Flagyl 15:30 *[facility] CONS 06/17/25 Transmitted [facility] 15:23 Mycophenolate Mofetil PHA 06/17/25 In Process (Cellcept) 22:00 Patients Own PHA 06/18/25 In Process Medication 10:00 Chest Portable XY 06/17/25 Resulted 16:02 Acetaminophen Tablet PHA 06/17/25 In Process (Tylenol Tablet) 17:30 Date of Service: Jun 17, 2025 Billing Provider: LINDA KRAUSE MD Common Visit Codes: [id number] INP/OBS CARE (HIGH) Secondary Visit Codes: [id number] CARE PLAN 30 MINUTES DORON NEVES Jun 17, 2025 18:04
[2025-06-17 20:55] LABS: Urine Protein, UAD 3+ (Negative)
[2025-06-17] MEDS: SODIUM CHLORIDE 0.9% 1,000 ML IV SCH (20:57)
[2025-06-17 22:02] LABS: Opiate Scree,Urine Pos (NEGATIVE)
[2025-06-17 22:04] LABS: Amphetamine Screen, Urine Neg (NEGATIVE); Barbiturate Scree,Urine Neg (NEGATIVE); Benzodiazephine Screen, Urine Neg (NEGATIVE); Cannabinoid Screen, Urine Neg (NEGATIVE); Cocaine Screen, Urine Neg (NEGATIVE); Phencyclidine Screen, Urine Neg (NEGATIVE)
[2025-06-17] MEDS: PANTOPRAZOLE 40 MG/10 ML VIAL INJ IV SCH (23:50)
[2025-06-18] VITALS (9 sets, daily range): BP systolic 102–164; BP diastolic 51–110; PULSE 65–76; RESP 12–19; TEMP 98–98.5; O2SAT 95–98
[2025-06-18] MEDS: MYCOPHENOLATE 500 MG TAB PO SCH (00:06)
[2025-06-18 03:31] LABS: Hematocrit 38.5 % (41.0-53.0); Hemoglobin 13.1 g/dL (13.5-17.5); Mean Corpuscular Hemoglobin 28.4 pg (28.0-32.0); Mean Corpuscular Volume 83.5 fL (80.0-100.0); Nucleated Red Blood Cells % 0.0 %
[2025-06-18 03:48] LABS: Alanine Aminotransferase 13 U/L (7-40); Albumin 3.6 g/dL (3.2-4.8); Anion Gap 11 (5-15); BUN/Creatinine Ratio 11.7 (10.0-20.0); Calcium 9.0 mg/dL (8.7-10.4); Carbon Dioxide 25 mmol/L (20-31); Magnesium 2.0 mg/dL (1.6-2.6); Potassium 4.5 mmol/L (3.5-5.1); Sodium 144 mmol/L (136-145); Total Protein 6.2 g/dL (5.7-8.2)
[2025-06-18 03:52] LABS: Bilirubin, Total 0.6 mg/dL (0.2-1.0)
[2025-06-18 04:01] LABS: Alkaline Phosphatase 148 U/L (46-116); Blood Urea Nitrogen 29 mg/dL (9-23); Chloride 108 mmol/L (98-107); Glucose 121 mg/dL (74-106)
[2025-06-18 04:24] LABS: INR 0.99 (0.9-1.15); Partial Thromboplastin Time 28.8 SEC (24.5-34.5); Prothrombin Time 10.5 sec (9.3-11.8)
--- NOTE | 2025-06-18 14:46 | DVHPNRES ---
Progress Note Date Seen: Jun 18, 2025 Resident Creating Document: SALLY TAYLOR RESIDENT Medical Necessity Reason Pt with a Central, PICC or Fol: No Subjective Review of Systems patient is a 44-year-old male with past medical history of hypoplastic kidneys s/p kidney transplant (2006, ), prior peritoneal dialysis and hemodialysis, and history of small bowel obstruction requiring laparotomy in 2013. Patient moved to the area 1.5 months ago and has been taking mycophenolate 1 g BID and sirolimus 2 mg daily with good adherence. patient states that his last bowel movement was on Wednesday, had nausea, vomiting and abdominal distention with pain. Surgery was consulted. Surgery recommended NG tube, NPO, no narcotics, and possible small bowel follow-through. He was started on ceftriaxone and metronidazole. Patient states that he has passed flatus and had bowel movements at home and in the ED. Denies any fever, chills, shortness of breath, chest pain. Past surgical history: Kidney transplant in 2006, exploratory laparotomy in 2013, cholecystectomy Family history: reviewed, Noncontributory Personal history: Denies smoking, alcohol, drug use lives with: Family Home medications: Mycophenolate 1 g b.i.d., sirolimus 2 mg daily. Constitutional: Denies weight loss, fever and chills. HEENT: Denies changes in vision and hearing. Respiratory: Denies shortness of breath and cough Cardiovascular: Denies chest discomfort or palpitations GI: Abdominal distention, discomfort nausea, vomiting and pain. : Denies dysuria and urinary frequency. Musculoskeletal: Denies myalgias and joint pain Skin: Denies rash and pruritus. Neurological: Denies dizziness, headache, vision or hearing problems 06/18/2025: Patient seen at bedside. Patient complains of epigastric pain on palpation, denies any nausea, vomiting. Patient has NG tube with low intermittent suction. Patient denies passing gas or having a bowel movement. patient states his last bowel movement was on Wednesday, does complain of heartburn, patient is to get small bowel series. Urinalysis positive for UTI but patient denies any dysuria, hematuria, burning sensation in urine. Objective vital signs Vital Sign Date Time Temp Pulse Resp B/P (MAP) Pulse Ox O2 Delivery O2 Flow Rate FiO2 06/18/25 10:40 72 16 95 Room Air* 0 21 06/18/25 10:32 98.0 164/110 (128) 98.0 Total Intake and Output 06/17/25 06/17/25 06/18/25 15:00 23:00 07:00 Intake Total 1000 ml 300 ml 100 ml Balance 1000 ml 300 ml 100 ml medications Current Medications Medications Dose Ordered Sig/Feng Route Start Time Stop Time Status Last Admin Dose Admin Ceftriaxone Sodium 50 ml @ 100 mls/hr DAILY@09 IV 06/18/25 09:00 06/18/25 09:40 100 MLS/HR Metronidazole 100 ml @ 100 mls/hr Q8HR IV 06/17/25 15:30 06/18/25 05:56 100 MLS/HR Mycophenolate Mofetil 500 mg BID PO 06/17/25 22:00 Patient Own Medication 1 DAILY PO 06/18/25 10:00 Acetaminophen 650 mg Q4HP PRN PO 06/17/25 17:30 Sodium Chloride 1,000 ml @ 100 mls/hr Q10H IV 06/17/25 20:45 06/17/25 20:57 100 MLS/HR Pantoprazole Sodium 40 mg BID IV 06/17/25 22:00 06/18/25 09:39 40 MG Examination General: Patient alert and oriented in person, place and time. Patient following commands. HEENT: Normocephalic, atraumatic, moist mucous membranes Respiratory/pulmonary: Clear lungs bilaterally, vesicular murmurs present in almost all lung dunlpa, no associated crackles or wheezes. Cardiovascular: Normal heart sounds S1 and S2 with no associated murmurs Abdomen: abdomen distended, epigastric tenderness on palpation, hypoactive bowel sounds. Extremities: There is no peripheral edema present at the lower extremities. Peripheral Pulses: 3+ Radial (R). 3+ Radial (L). 3+ Dorsalis pedis (R). 3+ Dorsalis pedis(L) Skin: No rashes or pruritus, there is no sacral edema present at this time. Neurological: Intact cranial nerves with no focal neurologic deficits laboratory and microbiology Laboratory Tests 06/18/25 03:08 Test 06/18/25 03:08 Range/Units Serum Glucose 121 H 74-106 mg/dL Microbiology Date/Time Source Procedure Growth Status 06/17/25 13:19 Blood Blood Culture - Preliminary NO GROWTH AFTER 24 HOURS OF INCUBATION. Resulted Problem List/Assessment/Plan Problem List/Assessment/Plan # sepsis due to small bowel obstruction - CT abdomen shows small bowel obstruction with a transition point in the right lower quadrant adjacent to the right renal transplant, and right femoral head sclerosis suggestive of avascular necrosis. - surgery consulted - continue ceftriaxone and metronidazole, - NG tube was placed with intermittent suction - NPO - Surgery recommends conservative management with small bowel follow-through. - WBC trending down - blood culture negative # status post Right kidney transplant # rule out acute rejection # ? PIA on CKD # immunocompromised state - on sirolimus, mycophenolate - renal ultrasound showed preserved graft flow without stenosis or hydronephrosis - strict I&O - Avoid nephrotoxic drugs - Nephrology consulted # right femoral head sclerosis - suggestive of avascular necrosis - Shown on CT scan # polysubstance abuse disorder UDS positive for opiates # obesity BMI 44.8 - patient counseled on diet, exercise, lifestyle modifications for 18 minutes PPI prophylaxis: Protonix DVT prophylaxis: ambulatory Goals of care addressed with the patient for more than 27 minutes: Full code status Case discussed with Dr. Marie , patient and nurse Plan discussed with: Patient Visit Coding STANDARD RES Billing Provider: BHAVANA MARIE MD Date of Service if different f: Jun 18, 2025 Common Visit Codes: [id number] INP/OBS CARE(HIGH) SALLY TAYLOR RESIDENT Jun 18, 2025 14:46
--- NOTE | 2025-06-18 16:10 | DVHPN2 ---
Progress Note - Surgical Date Seen: Jun 18, 2025 Post op day Post op day: 0 Subjective Patient reports: Feels worse (Feeling distended again) Review of Systems: Deferred Objective Vital signs Vital Sign Date Time Temp Pulse Resp B/P (MAP) Pulse Ox O2 Delivery O2 Flow Rate FiO2 06/18/25 13:00 98.0 70 14 161/81 (107) 98 98.0 06/18/25 10:40 Room Air* 0 21 Total Intake and Output 06/17/25 06/17/25 06/18/25 15:00 23:00 07:00 Intake Total 1000 ml 300 ml 100 ml Balance 1000 ml 300 ml 100 ml Medications Current Medications Medications Dose Ordered Sig/Feng Route Start Time Stop Time Status Last Admin Dose Admin Ceftriaxone Sodium 50 ml @ 100 mls/hr DAILY@09 IV 06/18/25 09:00 06/18/25 09:40 100 MLS/HR Metronidazole 100 ml @ 100 mls/hr Q8HR IV 06/17/25 15:30 06/18/25 14:50 100 MLS/HR Mycophenolate Mofetil 500 mg BID PO 06/17/25 22:00 Patient Own Medication 1 DAILY PO 06/18/25 10:00 Acetaminophen 650 mg Q4HP PRN PO 06/17/25 17:30 Sodium Chloride 1,000 ml @ 100 mls/hr Q10H IV 06/17/25 20:45 06/17/25 20:57 100 MLS/HR Pantoprazole Sodium 40 mg BID IV 06/17/25 22:00 06/18/25 09:39 40 MG Hydralazine HCl 10 mg Q6HP PRN IV 06/18/25 15:15 Laboratory Laboratory Tests 06/18/25 03:08 Test 06/18/25 03:08 Range/Units Serum Glucose 121 H 74-106 mg/dL Microbiology Date/Time Source Procedure Growth Status 06/17/25 13:19 Blood Blood Culture - Preliminary NO GROWTH AFTER 24 HOURS OF INCUBATION. Resulted Examination: GENERAL:Normal (AAO x3), HEENT:Normal (NG tube in place, 400 mL output when brought from the ED, after he has been in the room the suctioned was not working.), ABDOMEN:Normal (Distended, soft, depressible, nontender) Labs and/or images reviewed: Labs reviewed by me (Leukocytosis resolved), Image(s) reviewed by me (No abnormality seen on the kidney ultrasound) Problem List/Assessment/Plan Assessment and Plan Mr. Mederos is a 44-year-old male who presented with what appears to be a partial small bowel obstruction, he has a history of small-bowel obstruction for which he received an ex lap in the past. Currently has a NG tube placed and he had a large bowel movement while in the ED. I reviewed the CT scan and there appears to be mildly distended small bowel loops with a possible transition point in the right lower quadrant. Patient also presented with a leukocytosis and elevated blood sugar level, patient denies being diabetic, also his creatinine is 2.35 and he states is normal creatinine is in the 2. I want to rule out UTI versus transplant rejection on this patient. Interval: Patient was started on ceftriaxone, leukocytosis down trended to 10 from 18, creatinine elevation to 2.47 from 2.35. Kidney ultrasound does not show any Ashly kidney fluid, any abnormalities and flow velocities of the vessels nor any thrombosis. Patient distended this afternoon, the suctioning his room was not working and he has not been suctioned. He was switched from suction machine, I trouble she did it, and now is working. We will decompress the patient for 1 more day and reassess tomorrow for possible small bowel follow- through. 1. NG tube to LIS 2. NPO 3. No narcotics for pain control, utilizing Tylenol 4. Possible small bowel follow-through in the morning My Orders My Orders Orders - ADAM ROLDAN MD Procedure Category Date Status Time Renal Transplant 06/17/25 Resulted 16:45 Plan discussed with Plan discussed with: Patient Visit Coding Surgery Date of Service if different f: Jun 18, 2025 Billing Provider: ADAM ROLDAN MD Surgery Visit Codes: [id number] INP/OBS CARE(HIGH) ADAM ROLDAN MD Jun 18, 2025 16:10
[2025-06-18] MEDS ORDERED: KETOROLAC TROMETH 30 MG/ML 1ML VIAL IV PRN (20:30)
[2025-06-18] MEDS ORDERED: KETOROLAC TROMETH 30 MG/ML 1ML VIAL IV ONE (20:30)
[2025-06-18] MEDS: HYDROmorphone HCL 2 MG/ML VL/or syr IV ONE (23:45)
[2025-06-19] VITALS (9 sets, daily range): BP systolic 122–181; BP diastolic 66–104; PULSE 57–80; RESP 16–19; TEMP 97.9–98.2; O2SAT 95–97
[2025-06-19 06:28] LABS: Hematocrit 36.4 % (41.0-53.0); Hemoglobin 12.0 g/dL (13.5-17.5); Mean Corpuscular Hemoglobin 27.6 pg (28.0-32.0); Mean Corpuscular Volume 83.5 fL (80.0-100.0); Nucleated Red Blood Cells % 0.1 %
[2025-06-19 06:35] LABS: Potassium 4.0 mmol/L (3.5-5.1)
[2025-06-19 06:36] LABS: Anion Gap 11 (5-15); Calcium 8.9 mg/dL (8.7-10.4); Carbon Dioxide 24 mmol/L (20-31)
[2025-06-19 06:40] LABS: Chloride 112 mmol/L (98-107); Sodium 147 mmol/L (136-145)
[2025-06-19 06:41] LABS: BUN/Creatinine Ratio 12.2 (10.0-20.0); Glucose 85 mg/dL (74-106)
[2025-06-19 06:44] LABS: Blood Urea Nitrogen 29 mg/dL (9-23)
[2025-06-19] MEDS: D5W/SOD CHL 0.45% 1,000 ML IV SCH (08:43)
--- NOTE | 2025-06-19 09:27 | DVHPN2 ---
Progress Note - Surgical Date Seen: Jun 19, 2025 Post op day Post op day: 0 Subjective Patient reports: Feels better (Abdominal pain has improved, now passing flatus but no bowel movement) Review of Systems: Deferred Objective Vital signs Vital Sign Date Time Temp Pulse Resp B/P (MAP) Pulse Ox O2 Delivery O2 Flow Rate FiO2 06/19/25 08:38 98.2 63 17 149/85 (106) 95 98.2 06/19/25 08:30 Room Air* 0 21 Total Intake and Output 06/18/25 06/18/25 06/19/25 15:00 23:00 07:00 Intake Total 100 ml 200 ml 0 ml Output Total 1050 ml 500 ml 700 ml Balance -950 ml -300 ml -700 ml Medications Current Medications Medications Dose Ordered Sig/Feng Route Start Time Stop Time Status Last Admin Dose Admin Ceftriaxone Sodium 50 ml @ 100 mls/hr DAILY@09 IV 06/18/25 09:00 06/19/25 08:41 100 MLS/HR Metronidazole 100 ml @ 100 mls/hr Q8HR IV 06/17/25 15:30 06/19/25 06:23 100 MLS/HR Mycophenolate Mofetil 500 mg BID PO 06/17/25 22:00 Patient Own Medication 1 DAILY PO 06/18/25 10:00 Acetaminophen 650 mg Q4HP PRN PO 06/17/25 17:30 Pantoprazole Sodium 40 mg BID IV 06/17/25 22:00 06/19/25 08:41 40 MG Hydralazine HCl 10 mg Q6HP PRN IV 06/18/25 15:15 Dextrose/Sodium Chloride 1,000 ml @ 100 mls/hr Q10H IV 06/19/25 07:15 06/19/25 08:43 100 MLS/HR Laboratory Laboratory Tests 06/19/25 05:34 Test 06/19/25 05:34 Range/Units Serum Glucose 85 74-106 mg/dL Microbiology Date/Time Source Procedure Growth Status 06/17/25 13:19 Blood Blood Culture - Preliminary NO GROWTH AFTER 24 HOURS OF INCUBATION. Resulted Examination: GENERAL:Normal (AAO x3), HEENT:Normal (12 [place] NG tube in place (needs to be replaced)), LUNGS:Normal (Nonlabored breathing with symmetric expansion), ABDOMEN:Abnormal (Mild distention, soft, depressible, minimal epigastric tenderness) Labs and/or images reviewed: Labs reviewed by me (No leukocytosis and creatinine improving) Problem List/Assessment/Plan Assessment and Plan Mr. Mederos is a 44-year-old male who presented with what appears to be a partial small bowel obstruction, he has a history of small-bowel obstruction for which he received an ex lap in the past. Currently has a NG tube placed and he had a large bowel movement while in the ED. I reviewed the CT scan and there appears to be mildly distended small bowel loops with a possible transition point in the right lower quadrant. Patient also presented with a leukocytosis and elevated blood sugar level, patient denies being diabetic, also his creatinine is 2.35 and he states is normal creatinine is in the 2. I want to rule out UTI versus transplant rejection on this patient. Interval: Having issues with patient decompression yesterday the suctioned unit in his room was not working, I noted it in the afternoon and it was replaced to a working unit. Then overnight NG tube came out and a 12 [place] was placed but not placed to suction. The NG tube that is 10 [place] incised needs to, with to small has to be replaced with a 18 [place]. Depending on how much he puts out until mid day I would consider ordering the small bowel follow-through. 1. NG tube to LIS 2. NPO 3. No narcotics for pain control, utilizing Tylenol 4. Possible small bowel follow-through today in the afternoon Plan discussed with Plan discussed with: Patient Visit Coding Surgery Date of Service if different f: Jun 19, 2025 Billing Provider: ADAM ROLDAN MD Surgery Visit Codes: [id number] INP/OBS CARE(HIGH) ADAM ROLDAN MD Jun 19, 2025 09:27
--- NOTE | 2025-06-19 09:52 | DVHINCON2 ---
Date of service: Jun 19, [address] Jenkins Reason for Consultation CKD History of Present Illness Mr. Mederos is a 44-year-old male with known history of kidney transplant back in 2006 in [place] presents for further evaluation and management of abdominal distention and nausea. He has been diagnosed with possible small bowel obstruction. Outpatient immunosuppressive regimen included sirolimus and mycophenolate. He is seen in his room this morning, awake and alert and in no acute distress. He states that his abdominal distention has improved slightly with nasogastric decompression. Serum creatinine has been stable in the mid two range. He remains NPO. 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 now status post kidney transplant 2006 Past Surgical History Intra-abdominal surgery for bowel obstruction - 2013 Allergies: Coded Allergies: NO KNOWN ALLERGIES (Unverified , 06/17/25) Current Medications Current Medications Medications (Trade) Dose Ordered Sig/Feng Route PRN Reason Start Time Stop Time Status Last Admin Patient Own Medication 1 DAILY PO 06/18/25 10:00 Hydralazine HCl (Apresoline Injection) 10 mg Q6HP PRN IV SBP>170 06/18/25 15:15 Ketorolac Tromethamine (Toradol Injection) 15 mg Q6HPRN PRN IV SEVERE PAIN (7-10 PAIN SCALE) 06/18/25 20:30 06/18/25 23:43 DC Dextrose/Sodium Chloride 1,000 ml @ 100 mls/hr Q10H IV 06/19/25 07:15 06/19/25 08:43 Review of Systems Denies gross hematuria, dysuria, tea or Coca-Cola colored urine Denies excessive use of recent NSAIDs, foamy urine, recent IV contrast studies Denies recent chest pain, dyspnea, PND, orthopnea Denies unintentional weight loss, night sweats Denies focal weakness, numbness H&P Exam Vital Signs/I&O Vital Sign Date Time Temp Pulse Resp B/P (MAP) Pulse Ox O2 Delivery O2 Flow Rate FiO2 06/19/25 08:38 98.2 63 17 149/85 (106) 95 98.2 06/19/25 08:30 Room Air* 0 21 Intake and Output 06/18/25 06/19/25 19:00 07:00 Intake Total 200 ml 100 ml Output Total 1550 ml 700 ml Balance -1350 ml -600 ml Intake Oral 0 ml 0 ml IV Total 200 ml 100 ml Output Urine Total 1100 ml 700 ml Gastric Drainage Total 450 ml # Voids 1 Physical Exam Gen: nad heent: nc/at, mmm lungs: cta anteriorly cvs: no rub abd: soft, bowel sounds audible, distended. Kidney allograft without tenderness. ext: no edema skin: no rash neuro: alert and oriented Labs/Diagnostic Data Labs/Diagnostic Data Laboratory Tests Test 06/19/25 05:34 06/18/25 03:08 06/17/25 20:35 06/17/25 15:48 Range/Units White Blood Count 7.0 # 10.4 # 4.4-10.8 10^3/uL Red Blood Count 4.37 L 4.61 4.5-5.90 10^6/uL Hemoglobin 12.0 L 13.1 L 13.5-17.5 g/dL Hematocrit 36.4 L 38.5 #L 41.0-53.0 % Mean Corpuscular Volume 83.5 83.5 80.0-100.0 fL Mean Corpuscular Hemoglobin 27.6 L 28.4 28.0-32.0 pg Mean Corpuscular Hemoglobin Concent 33.0 34.0 32.0-36.0 g/dL Red Cell Distribution Width 14.3 14.2 11.8-14.3 % Platelet Count 184 200 140-450 10^3/uL Mean Platelet Volume 9.3 9.3 6.9-10.8 fL Neutrophils (%) (Auto) 70.2 76.4 37.0-80.0 % Lymphocytes (%) (Auto) 16.5 11.3 10.0-50.0 % Monocytes (%) (Auto) 9.7 10.8 0.0-12.0 % Eosinophils (%) (Auto) 2.9 0.9 0.0-7.0 % Basophils (%) (Auto) 0.7 0.6 0.0-2.0 % Neutrophils # (Auto) 4.9 7.9 1.6-8.6 10 ^3/uL Lymphocytes # (Auto) 1.2 1.2 0.4-5.4 10 ^3/uL Monocytes # (Auto) 0.7 1.1 0-1.3 10 ^3/uL Eosinophils # (Auto) 0.2 0.1 0-0.8 10 ^3/uL Basophils # (Auto) 0 0.1 0-0.2 10 ^3/uL Nucleated Red Blood Cells 0.1 0.0 % Sodium Level 147 H 144 # 136-145 mmol/L Potassium Level 4.0 4.5 3.5-5.1 mmol/L Chloride Level 112 H 108 H 98-107 mmol/L Carbon Dioxide Level 24 25 20-31 mmol/L Anion Gap 11 11 5-15 Blood Urea Nitrogen 29 H 29 H 9-23 mg/dL Creatinine 2.37 H 2.47 H 0.700-1.30 mg/dL Glomerular Filtration Rate Calc 34 32 >90 mL/min BUN/Creatinine Ratio 12.2 11.7 10.0-20.0 Serum Glucose 85 121 H 74-106 mg/dL Calcium Level 8.9 9.0 8.7-10.4 mg/dL Prothrombin Time 10.5 9.3-11.8 sec Prothrombin Time INR 0.99 0.9-1.15 Activated Partial Thromboplast Time 28.8 24.5-34.5 SEC Lactic Acid Level 1.0 1.9 0.4-2.0 mmol/L Phosphorus Level 3.1 2.4-5.1 mg/dL Magnesium Level 2.0 1.6-2.6 mg/dL Total Bilirubin 0.6 0.2-1.0 mg/dL Aspartate Amino Transferase (AST) 15 13-40 U/L Alanine Aminotransferase (ALT) 13 7-40 U/L Alkaline Phosphatase 148 H 46-116 U/L Total Protein 6.2 5.7-8.2 g/dL Albumin 3.6 3.2-4.8 g/dL Thyroid Stimulating Hormone (TSH) 1.47 0.55-4.78 uIU/mL Urine Color Light-yellow Yellow Urine Clarity Clear Clear Urine pH 6.0 5.0-9.0 Urine Specific [place] 1.018 1.001-1.035 Urine Protein 3+ H Negative Urine Ketones Negative Negative Urine Blood 1+ H Negative /uL Urine Nitrite 1+ H Negative Urine Bilirubin Negative Negative Urine Urobilinogen Normal Negative mg/dL Urine Leukocyte Esterase 1+ Negative /uL Urine RBC 3 0 - 3 /hpf Urine Microscopic WBC 59 H 0-3 /HPF Urine Squamous Epithelial Cells Few <5 /hpf Urine Bacteria Many H None Seen /hpf Urine Hyaline Casts Few 0 - 2 /lpf Urine Glucose 1+ H Normal mg/dL Urine Opiates Screen Pos NEGATIVE Urine Fentanyl Screen Neg NEGATIVE Urine Barbiturates Screen Neg NEGATIVE Urine Phencyclidine Screen Neg NEGATIVE Urine Amphetamines Screen Neg NEGATIVE Urine Benzodiazepines Screen Neg NEGATIVE Urine Cocaine Screen Neg NEGATIVE Urine Cannabinoids Screen Neg NEGATIVE Test 06/17/25 13:35 06/17/25 13:19 06/17/25 11:35 Range/Units Hemoglobin A1c 5.5 <5.7 % A1C Prothrombin Time 10.4 9.3-11.8 sec Prothrombin Time INR 0.98 0.9-1.15 Activated Partial Thromboplast Time 24.4 L 24.5-34.5 SEC Lactic Acid Level 2.3 *H 0.4-2.0 mmol/L White Blood Count 18.4 H 4.4-10.8 10^3/uL Red Blood Count 5.49 4.5-5.90 10^6/uL Hemoglobin 15.2 13.5-17.5 g/dL Hematocrit 45.1 41.0-53.0 % Mean Corpuscular Volume 82.2 80.0-100.0 fL Mean Corpuscular Hemoglobin 27.7 L 28.0-32.0 pg Mean Corpuscular Hemoglobin Concent 33.7 32.0-36.0 g/dL Red Cell Distribution Width 14.0 11.8-14.3 % Platelet Count 267 140-450 10^3/uL Mean Platelet Volume 9.6 6.9-10.8 fL Neutrophils (%) (Auto) 93.2 H 37.0-80.0 % Lymphocytes (%) (Auto) 3.7 L 10.0-50.0 % Monocytes (%) (Auto) 2.4 0.0-12.0 % Eosinophils (%) (Auto) 0.1 0.0-7.0 % Basophils (%) (Auto) 0.6 0.0-2.0 % Neutrophils # (Auto) 17.2 H 1.6-8.6 10 ^3/uL Lymphocytes # (Auto) 0.7 0.4-5.4 10 ^3/uL Monocytes # (Auto) 0.4 0-1.3 10 ^3/uL Eosinophils # (Auto) 0 0-0.8 10 ^3/uL Basophils # (Auto) 0.1 0-0.2 10 ^3/uL Nucleated Red Blood Cells 0.1 % Sodium Level 139 136-145 mmol/L Potassium Level 4.5 3.5-5.1 mmol/L Chloride Level 102 98-107 mmol/L Carbon Dioxide Level 22 20-31 mmol/L Anion Gap 15 5-15 Blood Urea Nitrogen 28 H 9-23 mg/dL Creatinine 2.35 H 0.700-1.30 mg/dL Glomerular Filtration Rate Calc 34 >90 mL/min BUN/Creatinine Ratio 11.9 10.0-20.0 Serum Glucose 193 H 74-106 mg/dL Calcium Level 9.8 8.7-10.4 mg/dL Total Bilirubin 0.5 0.2-1.0 mg/dL Aspartate Amino Transferase (AST) 19 13-40 U/L Alanine Aminotransferase (ALT) 19 7-40 U/L Alkaline Phosphatase 207 H 46-116 U/L Troponin I High Sensitivity < 3 L </=54 ng/L Total Protein 8.0 5.7-8.2 g/dL Albumin 4.6 3.2-4.8 g/dL Lipase 37 12-53 U/L Assessment IMP: 1) 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 - will continue to follow closely Thank you for the consultation Plan discussed with: Patient HECTOR NOLASCO MD Jun 19, 2025 09:52
--- NOTE | 2025-06-19 12:15 | DVH ---
INDICATION: NG TUBE PLACEMENT CONFIRMATION. TECHNIQUE: Frontal view of the chest. COMPARISON: XY CHEST PORTABLE on DOS: 06/17/25 FINDINGS: Nasogastric tube overlying stomach. The heart and mediastinal contours are grossly unremarkable. There is no evidence of pleural disease. The lungs are clear. The bony structures of the chest are intact without fracture. IMPRESSION: 1. No evidence of acute disease.
--- NOTE | 2025-06-19 15:19 | DVHPNRES ---
Progress Note Date Seen: Jun 19, 2025 Resident Creating Document: SALLY TAYLOR RESIDENT Medical Necessity Reason Pt with a Central, PICC or Fol: No Subjective Review of Systems patient is a 44-year-old male with past medical history of hypoplastic kidneys s/p kidney transplant (2006, ), prior peritoneal dialysis and hemodialysis, and history of small bowel obstruction requiring laparotomy in 2013. Patient moved to the area 1.5 months ago and has been taking mycophenolate 1 g BID and sirolimus 2 mg daily with good adherence. patient states that his last bowel movement was on Wednesday, had nausea, vomiting and abdominal distention with pain. Surgery was consulted. Surgery recommended NG tube, NPO, no narcotics, and possible small bowel follow-through. He was started on ceftriaxone and metronidazole. Patient states that he has passed flatus and had bowel movements at home and in the ED. Denies any fever, chills, shortness of breath, chest pain. Past surgical history: Kidney transplant in 2006, exploratory laparotomy in 2013, cholecystectomy Family history: reviewed, Noncontributory Personal history: Denies smoking, alcohol, drug use lives with: Family Home medications: Mycophenolate 1 g b.i.d., sirolimus 2 mg daily. Constitutional: Denies weight loss, fever and chills. HEENT: Denies changes in vision and hearing. Respiratory: Denies shortness of breath and cough Cardiovascular: Denies chest discomfort or palpitations GI: Abdominal distention, discomfort nausea, vomiting and pain. : Denies dysuria and urinary frequency. Musculoskeletal: Denies myalgias and joint pain Skin: Denies rash and pruritus. Neurological: Denies dizziness, headache, vision or hearing problems 06/18/2025: Patient seen at bedside. Patient complains of epigastric pain on palpation, denies any nausea, vomiting. Patient has NG tube with low intermittent suction. Patient denies passing gas or having a bowel movement. patient states his last bowel movement was on Wednesday, does complain of heartburn, patient is to get small bowel series. Urinalysis positive for UTI but patient denies any dysuria, hematuria, burning sensation in urine 06/19/2025: Patient seen at bedside. patient states that he has not had a bowel movement, is not passing gas. Small bowel series to be done. Objective vital signs Vital Sign Date Time Temp Pulse Resp B/P (MAP) Pulse Ox O2 Delivery O2 Flow Rate FiO2 06/19/25 13:00 98.0 69 16 139/86 (103) 97 98.0 06/19/25 08:30 Room Air* 0 21 Total Intake and Output 06/18/25 06/18/25 06/19/25 15:00 23:00 07:00 Intake Total 100 ml 200 ml 0 ml Output Total 1050 ml 500 ml 700 ml Balance -950 ml -300 ml -700 ml medications Current Medications Medications Dose Ordered Sig/Feng Route Start Time Stop Time Status Last Admin Dose Admin Ceftriaxone Sodium 50 ml @ 100 mls/hr DAILY@09 IV 06/18/25 09:00 06/19/25 08:41 100 MLS/HR Metronidazole 100 ml @ 100 mls/hr Q8HR IV 06/17/25 15:30 06/19/25 13:34 100 MLS/HR Mycophenolate Mofetil 500 mg BID PO 06/17/25 22:00 Patient Own Medication 1 DAILY PO 06/18/25 10:00 Acetaminophen 650 mg Q4HP PRN PO 06/17/25 17:30 Pantoprazole Sodium 40 mg BID IV 06/17/25 22:00 06/19/25 08:41 40 MG Hydralazine HCl 10 mg Q6HP PRN IV 06/18/25 15:15 Dextrose/Sodium Chloride 1,000 ml @ 100 mls/hr Q10H IV 06/19/25 07:15 06/19/25 08:43 100 MLS/HR Examination General: Patient alert and oriented in person, place and time. Patient following commands. HEENT: Normocephalic, atraumatic, moist mucous membranes Respiratory/pulmonary: Clear lungs bilaterally, vesicular murmurs present in almost all lung [place], no associated crackles or wheezes. Cardiovascular: Normal heart sounds S1 and S2 with no associated murmurs Abdomen: abdomen distended, epigastric tenderness on palpation, hypoactive bowel sounds. Extremities: There is no peripheral edema present at the lower extremities. Peripheral Pulses: 3+ Radial (R). 3+ Radial (L). 3+ Dorsalis pedis (R). 3+ Dorsalis pedis(L) Skin: No rashes or pruritus, there is no sacral edema present at this time. Neurological: Intact cranial nerves with no focal neurologic deficits laboratory and microbiology Laboratory Tests 06/19/25 05:34 Test 06/19/25 05:34 Range/Units Serum Glucose 85 74-106 mg/dL Microbiology Date/Time Source Procedure Growth Status 06/17/25 13:19 Blood Blood Culture - Preliminary NO GROWTH AFTER 48 HOURS OF INCUBATION. Resulted Problem List/Assessment/Plan Problem List/Assessment/Plan # sepsis due to small bowel obstruction - CT abdomen shows small bowel obstruction with a transition point in the right lower quadrant adjacent to the right renal transplant, and right femoral head sclerosis suggestive of avascular necrosis. - surgery consulted - continue ceftriaxone and metronidazole, - NG tube was placed with intermittent suction - NPO - Surgery recommends conservative management with small bowel follow-through. - WBC trending down - blood culture negative # status post Right kidney transplant # rule out acute rejection # ? PIA on CKD # immunocompromised state - on sirolimus, mycophenolate - renal ultrasound showed preserved graft flow without stenosis or hydronephrosis - strict I&O - Avoid nephrotoxic drugs - Nephrology consulted # right femoral head sclerosis - suggestive of avascular necrosis - Shown on CT scan # polysubstance abuse disorder UDS positive for opiates # obesity BMI 44.8 - patient counseled on diet, exercise, lifestyle modifications for 18 minutes PPI prophylaxis: Protonix DVT prophylaxis: ambulatory Goals of care addressed with the patient for more than 27 minutes: Full code status Case discussed with Dr. Marie , patient and nurse Plan discussed with: Patient My Orders My Orders Orders - SALLY TAYLOR Procedure Category Date Status Time Chest Portable XY 06/19/25 Resulted 07:30 Visit Coding STANDARD RES Billing Provider: BHAVANA MARIE MD Date of Service if different f: Jun 19, 2025 Common Visit Codes: [id number] INP/OBS CARE(HIGH) SALLY TAYLOR Jun 19, 2025 15:19
[2025-06-19] MEDS: hydrALAZINE HCL 20 MG/ML VL IV PRN (21:22)
[2025-06-20] VITALS (8 sets, daily range): BP systolic 133–166; BP diastolic 67–95; PULSE 66–96; RESP 17–19; TEMP 97.5–98; O2SAT 79–97
[2025-06-20 07:11] LABS: Anion Gap 10 (5-15); Carbon Dioxide 24 mmol/L (20-31)
[2025-06-20 07:12] LABS: Calcium 9.1 mg/dL (8.7-10.4)
[2025-06-20 07:13] LABS: Chloride 112 mmol/L (98-107); Potassium 3.5 mmol/L (3.5-5.1); Sodium 146 mmol/L (136-145)
[2025-06-20 07:17] LABS: BUN/Creatinine Ratio 9.1 (10.0-20.0); Blood Urea Nitrogen 22 mg/dL (9-23); Glucose 87 mg/dL (74-106)
--- NOTE | 2025-06-20 12:25 | DVHPN2 ---
Progress Note - Surgical Date Seen: Jun 20, 2025 Post op day Post op day: 0 Subjective Patient reports: Feels better (Feeling better, had a small liquidy bowel movement yesterday, feel like he has to have another 1 this morning, states that the abdomen feels better) Review of Systems: Deferred Objective Vital signs Vital Sign Date Time Temp Pulse Resp B/P (MAP) Pulse Ox O2 Delivery O2 Flow Rate FiO2 06/20/25 09:47 97.5 68 17 143/95 (111) 96 97.5 06/19/25 20:00 Room Air* 0 21 Total Intake and Output 06/19/25 06/19/25 06/20/25 15:00 23:00 07:00 Intake Total 250 ml 100 ml 0 ml Output Total 700 ml 900 ml Balance 250 ml -600 ml -900 ml Medications Current Medications Medications Dose Ordered Sig/Feng Route Start Time Stop Time Status Last Admin Dose Admin Ceftriaxone Sodium 50 ml @ 100 mls/hr DAILY@09 IV 06/18/25 09:00 06/20/25 09:00 100 MLS/HR Metronidazole 100 ml @ 100 mls/hr Q8HR IV 06/17/25 15:30 06/20/25 06:30 100 MLS/HR Mycophenolate Mofetil 500 mg BID PO 06/17/25 22:00 Patient Own Medication 1 DAILY PO 06/18/25 10:00 Acetaminophen 650 mg Q4HP PRN PO 06/17/25 17:30 Pantoprazole Sodium 40 mg BID IV 06/17/25 22:00 06/20/25 09:00 40 MG Hydralazine HCl 10 mg Q6HP PRN IV 06/18/25 15:15 06/19/25 21:22 10 MG Dextrose/Sodium Chloride 1,000 ml @ 100 mls/hr Q10H IV 06/19/25 07:15 06/20/25 04:03 100 MLS/HR Laboratory Laboratory Tests 06/20/25 05:11 06/19/25 05:34 Test 06/20/25 05:11 Range/Units Serum Glucose 87 74-106 mg/dL Microbiology Date/Time Source Procedure Growth Status 06/17/25 13:19 Blood Blood Culture - Preliminary NO GROWTH AFTER 48 HOURS OF INCUBATION. Resulted Examination: GENERAL:Normal (AA0 x 3), LUNGS:Normal (Nonlabored breathing with symmetric expansion), ABDOMEN:Normal (Nondistended, soft, depressible, previous surgical scars healed, nontender) Labs and/or images reviewed: Labs reviewed by me (No leukocytosis) Problem List/Assessment/Plan Assessment and Plan Mr. Mederos is a 44-year-old male who presented with what appears to be a partial small bowel obstruction, he has a history of small-bowel obstruction for which he received an ex lap in the past. Currently has a NG tube placed and he had a large bowel movement while in the ED. I reviewed the CT scan and there appears to be mildly distended small bowel loops with a possible transition point in the right lower quadrant. Patient also presented with a leukocytosis and elevated blood sugar level, patient denies being diabetic, also his creatinine is 2.35 and he states is normal creatinine is in the 2. I want to rule out UTI versus transplant rejection on this patient. Interval: Patient fully decompress this morning, only 100 mL NG tube output since replacement yesterday morning. Patient yesterday had a liquid bowel movements and feels like he needs to have another 1 this morning. We will proceed with small bowel follow-through. 1. Small bowel follow-through 2. If patient starts having bowel movement after the follow-through, may clamp the NG tube and start him on a clear liquid diet. Plan discussed with Plan discussed with: Patient Visit Coding Surgery Date of Service if different f: Jun 20, 2025 Billing Provider: ADAM ROLDAN MD Surgery Visit Codes: [id number] INP/OBS CARE(HIGH) ADAM ROLDAN MD Jun 20, 2025 12:25
[2025-06-20] MEDS ORDERED: GASTROGRAFIN 120 ML SOL ONE (15:20)
--- NOTE | 2025-06-20 17:38 | DVHPNRES ---
Progress Note Date Seen: Jun 20, 2025 Resident Creating Document: SALLY TAYLOR RESIDENT Medical Necessity Reason Pt with a Central, PICC or Fol: No Subjective Review of Systems patient is a 44-year-old male with past medical history of hypoplastic kidneys s/p kidney transplant (2006, ), prior peritoneal dialysis and hemodialysis, and history of small bowel obstruction requiring laparotomy in 2013. Patient moved to the area 1.5 months ago and has been taking mycophenolate 1 g BID and sirolimus 2 mg daily with good adherence. patient states that his last bowel movement was on Wednesday, had nausea, vomiting and abdominal distention with pain. Surgery was consulted. Surgery recommended NG tube, NPO, no narcotics, and possible small bowel follow-through. He was started on ceftriaxone and metronidazole. Patient states that he has passed flatus and had bowel movements at home and in the ED. Denies any fever, chills, shortness of breath, chest pain. Past surgical history: Kidney transplant in 2006, exploratory laparotomy in 2013, cholecystectomy Family history: reviewed, Noncontributory Personal history: Denies smoking, alcohol, drug use lives with: Family Home medications: Mycophenolate 1 g b.i.d., sirolimus 2 mg daily. 06/18/2025: Patient seen at bedside. Patient complains of epigastric pain on palpation, denies any nausea, vomiting. Patient has NG tube with low intermittent suction. Patient denies passing gas or having a bowel movement. patient states his last bowel movement was on Wednesday, does complain of heartburn, patient is to get small bowel series. Urinalysis positive for UTI but patient denies any dysuria, hematuria, burning sensation in urine 06/19/2025: Patient seen at bedside. patient states that he has not had a bowel movement, is not passing gas. Small bowel series to be done. 06/20/25: Patient seen at bedside. Patient has passed gas and had a liquid bowel movement. Small-bowel series done. Objective vital signs Vital Sign Date Time Temp Pulse Resp B/P (MAP) Pulse Ox O2 Delivery O2 Flow Rate FiO2 06/20/25 12:56 97.8 80 17 160/93 (115) 96 97.8 06/19/25 20:00 Room Air* 0 21 Total Intake and Output 06/19/25 06/19/25 06/20/25 15:00 23:00 07:00 Intake Total 250 ml 100 ml 0 ml Output Total 700 ml 900 ml Balance 250 ml -600 ml -900 ml medications Current Medications Medications Dose Ordered Sig/Feng Route Start Time Stop Time Status Last Admin Dose Admin Ceftriaxone Sodium 50 ml @ 100 mls/hr DAILY@09 IV 06/18/25 09:00 06/20/25 09:00 100 MLS/HR Metronidazole 100 ml @ 100 mls/hr Q8HR IV 06/17/25 15:30 06/20/25 06:30 100 MLS/HR Mycophenolate Mofetil 500 mg BID PO 06/17/25 22:00 Patient Own Medication 1 DAILY PO 06/18/25 10:00 Acetaminophen 650 mg Q4HP PRN PO 06/17/25 17:30 Pantoprazole Sodium 40 mg BID IV 06/17/25 22:00 06/20/25 09:00 40 MG Hydralazine HCl 10 mg Q6HP PRN IV 06/18/25 15:15 06/19/25 21:22 10 MG Dextrose/Sodium Chloride 1,000 ml @ 100 mls/hr Q10H IV 06/19/25 07:15 06/20/25 04:03 100 MLS/HR Examination General: Patient alert and oriented in person, place and time. Patient following commands. HEENT: Normocephalic, atraumatic, moist mucous membranes Respiratory/pulmonary: Clear lungs bilaterally, vesicular murmurs present in almost all lung dunlap, no associated crackles or wheezes. Cardiovascular: Normal heart sounds S1 and S2 with no associated murmurs Abdomen: abdomen distended, epigastric tenderness on palpation, hypoactive bowel sounds. Extremities: There is no peripheral edema present at the lower extremities. Peripheral Pulses: 3+ Radial (R). 3+ Radial (L). 3+ Dorsalis pedis (R). 3+ Dorsalis pedis(L) Skin: No rashes or pruritus, there is no sacral edema present at this time. Neurological: Intact cranial nerves with no focal neurologic deficits laboratory and microbiology Laboratory Tests 06/20/25 05:11 06/19/25 05:34 Test 06/20/25 05:11 Range/Units Serum Glucose 87 74-106 mg/dL Microbiology Date/Time Source Procedure Growth Status 06/17/25 13:19 Blood Blood Culture - Preliminary NO GROWTH AFTER 72 HOURS OF INCUBATION. Resulted Problem List/Assessment/Plan Problem List/Assessment/Plan # sepsis due to small bowel obstruction - CT abdomen shows small bowel obstruction with a transition point in the right lower quadrant adjacent to the right renal transplant, and right femoral head sclerosis suggestive of avascular necrosis. - surgery consulted - continue ceftriaxone and metronidazole, - NG tube was placed with intermittent suction - NPO - Surgery recommends conservative management with small bowel follow-through. - WBC trending down - blood culture negative # status post Right kidney transplant # rule out acute rejection # ? PIA on CKD # immunocompromised state - on sirolimus, mycophenolate - renal ultrasound showed preserved graft flow without stenosis or hydronephrosis - strict I&O - Avoid nephrotoxic drugs - Nephrology consulted # right femoral head sclerosis - suggestive of avascular necrosis - Shown on CT scan # polysubstance abuse disorder UDS positive for opiates # obesity BMI 44.8 - patient counseled on diet, exercise, lifestyle modifications for 18 minutes PPI prophylaxis: Protonix DVT prophylaxis: ambulatory Goals of care addressed with the patient for more than 27 minutes: Full code status Case discussed with Dr. Marie , patient and nurse Plan discussed with: Patient My Orders My Orders Orders - SALLY TAYLOR Procedure Category Date Status Time Small Bowel Series-W XY 06/20/25 Logged Gastrogra 10:56 Visit Coding STANDARD RES Billing Provider: BHAVANA MARIE MD Date of Service if different f: Jun 20, 2025 Common Visit Codes: [id number] INP/OBS CARE(HIGH) SALLY TAYLOR RESIDENT Jun 20, 2025 17:38
--- NOTE | 2025-06-20 18:05 | DVHPN2 ---
Progress Note - Dictate Date Seen: Jun 20, 2025 Medical Necessity Reason Pt with a Central, PICC or Fol: No Subjective Patient states abdominal pain improved vital signs Vital Sign Date Time Temp Pulse Resp B/P (MAP) Pulse Ox O2 Delivery O2 Flow Rate FiO2 06/20/25 17:35 179/105 06/20/25 12:56 97.8 80 17 96 97.8 06/19/25 20:00 Room Air* 0 21 Total Intake and Output 06/19/25 06/19/25 06/20/25 15:00 23:00 07:00 Intake Total 250 ml 100 ml 0 ml Output Total 700 ml 900 ml Balance 250 ml -600 ml -900 ml medications Current Medications Medications Dose Ordered Sig/Feng Route Start Time Stop Time Status Last Admin Dose Admin Ceftriaxone Sodium 50 ml @ 100 mls/hr DAILY@09 IV 06/18/25 09:00 06/20/25 09:00 100 MLS/HR Metronidazole 100 ml @ 100 mls/hr Q8HR IV 06/17/25 15:30 06/20/25 17:35 100 MLS/HR Mycophenolate Mofetil 500 mg BID PO 06/17/25 22:00 Patient Own Medication 1 DAILY PO 06/18/25 10:00 Acetaminophen 650 mg Q4HP PRN PO 06/17/25 17:30 Pantoprazole Sodium 40 mg BID IV 06/17/25 22:00 06/20/25 09:00 40 MG Hydralazine HCl 10 mg Q6HP PRN IV 06/18/25 15:15 06/20/25 17:35 10 MG Dextrose/Sodium Chloride 1,000 ml @ 100 mls/hr Q10H IV 06/19/25 07:15 06/20/25 04:03 100 MLS/HR objective Gen: nad, NG tube in place heent: nc/at, mmm lungs: cta anteriorly cvs: no rub abd: soft, bowel sounds diminished laboratory and microbiology Laboratory Tests 06/20/25 05:11 06/19/25 05:34 Test 06/20/25 05:11 Range/Units Serum Glucose 87 74-106 mg/dL Assessment/Plan IMP: 1) ESRD 2/2 hypoplastic kidneys - s/p kidney transplant 2006 2) Partial SBO 3) Obesity 4) Anemia 5) Volume depletion - improved REC: - ask patient to bring in home/ antirejection medications - and recommend to take a tablet with a very small amount of water to allow for absorption. - it appears small-bowel obstruction maybe improving - we will continue with IV fluids - daily basic chemistry panel to follow serum electrolytes and kidney allograft function Plan discussed with: Patient HECTOR NOLASCO MD Jun 20, 2025 18:05
[2025-06-20] MEDS: D5W/SOD CHL 0.45% 1,000 ML IV SCH (18:15)
[2025-06-21] VITALS (8 sets, daily range): BP systolic 119–177; BP diastolic 62–94; PULSE 54–82; RESP 18–21; TEMP 97.4–98.5; O2SAT 95–97
[2025-06-21 08:29] LABS: Anion Gap 16 (5-15); Carbon Dioxide 20 mmol/L (20-31)
[2025-06-21 08:30] LABS: Calcium 9.0 mg/dL (8.7-10.4)
[2025-06-21 08:33] LABS: Chloride 112 mmol/L (98-107); Potassium 3.5 mmol/L (3.5-5.1); Sodium 148 mmol/L (136-145)
[2025-06-21 08:34] LABS: Glucose 79 mg/dL (74-106)
[2025-06-21 08:35] LABS: BUN/Creatinine Ratio 6.8 (10.0-20.0); Blood Urea Nitrogen 15 mg/dL (9-23)
--- NOTE | 2025-06-21 09:32 | DVH ---
PROCEDURE: XY SMALL BOWEL SERIES-W GASTROGRA Reason for study/Clinical History: bowel follow though. Small-bowel obstruction. Comparison Study: CT dated 06/17/2025. TECHNIQUE: Single contrast small bowel series performed. [employer] radiographs of the abdomen were obtained prior to GI contrast administration. 240 mL Gastroview was administered. FINDINGS/IMPRESSION: [employer] radiographs of the abdomen demonstrate the enteric tube reaching the body of the stomach. Nonspecific bowel gas pattern with gas-filled nondilated small bowel loops and gas and moderate stool in the colon. Contrast was injected through the enteric tube into the stomach and passed into the small bowel without delay. Contrast reached the colon at 3 hours after initial administration. Contrast is identified within the colon by 3 hours. This represents a mildly delayed bowel transit time. Findings may be due to ileus or partial obstruction.
--- NOTE | 2025-06-21 10:12 | DVHPN2 ---
Progress Note - Surgical Date Seen: Jun 21, 2025 Post op day Post op day: 0 Subjective Patient reports: Feels better (No complaints, feeling good had 2 bowel movements and feels like he has to go again.) Review of Systems: Deferred Objective Vital signs Vital Sign Date Time Temp Pulse Resp B/P (MAP) Pulse Ox O2 Delivery O2 Flow Rate FiO2 06/21/25 09:09 97.9 82 21 177/93 (121) 97 97.9 06/20/25 20:00 Room Air* 0 21 Total Intake and Output 06/20/25 06/20/25 06/21/25 14:59 22:59 06:59 Intake Total 150 ml 0 ml Output Total 325 ml Balance 150 ml -325 ml Medications Current Medications Medications Dose Ordered Sig/Feng Route Start Time Stop Time Status Last Admin Dose Admin Ceftriaxone Sodium 50 ml @ 100 mls/hr DAILY@09 IV 06/18/25 09:00 06/21/25 09:18 100 MLS/HR Metronidazole 100 ml @ 100 mls/hr Q8HR IV 06/17/25 15:30 06/21/25 05:11 100 MLS/HR Mycophenolate Mofetil 500 mg BID PO 06/17/25 22:00 Patient Own Medication 1 DAILY PO 06/18/25 10:00 Acetaminophen 650 mg Q4HP PRN PO 06/17/25 17:30 Pantoprazole Sodium 40 mg BID IV 06/17/25 22:00 06/21/25 09:18 40 MG Hydralazine HCl 10 mg Q6HP PRN IV 06/18/25 15:15 06/21/25 06:09 10 MG Dextrose/Sodium Chloride 1,000 ml @ 125 mls/hr Q8H IV 06/20/25 18:15 06/21/25 01:25 125 MLS/HR Hydralazine HCl 10 mg Q6HR IV 06/21/25 12:00 Laboratory Laboratory Tests 06/21/25 08:08 06/19/25 05:34 Test 06/21/25 08:08 Range/Units Serum Glucose 79 74-106 mg/dL Microbiology Date/Time Source Procedure Growth Status 06/17/25 13:19 Blood Blood Culture - Preliminary NO GROWTH AFTER 72 HOURS OF INCUBATION. Resulted Examination: GENERAL:Normal (AAO x3), LUNGS:Normal (Nonlabored breathing with symmetric expansion), ABDOMEN:Normal (Globose, nondistended, soft, depressible, previous scars healed, nontender) Labs and/or images reviewed: Labs reviewed by me Problem List/Assessment/Plan Assessment and Plan Mr. Mederos is a 44-year-old male who presented with what appears to be a partial small bowel obstruction, he has a history of small-bowel obstruction for which he received an ex lap in the past. Currently has a NG tube placed and he had a large bowel movement while in the ED. I reviewed the CT scan and there appears to be mildly distended small bowel loops with a possible transition point in the right lower quadrant. Patient also presented with a leukocytosis and elevated blood sugar level, patient denies being diabetic, also his creatinine is 2.35 and he states is normal creatinine is in the 2. I want to rule out UTI versus transplant rejection on this patient. Interval: Patient underwent small bowel follow-through yesterday, contrast made its way to the colon in less than 3 hours, normal transit time, obstruction resolved. We will start patient on clear liquid diet and advance as tolerated, cleared for discharge this afternoon. 1. Clear liquid diet and advance as tolerated 2. NG tube removed 3. Cleared for discharge this afternoon 4. I will sign off, please call with any questions or concerns. My Orders My Orders Orders - ADAM ROLDAN MD Procedure Category Date Status Time Clear Liq Diet DIET 06/21/25 Transmitted Lunch Clamp Ngt ORDERS 06/21/25 Transmitted 09:53 Advance Diet As LILLIAN 06/21/25 In Process Tolerated 09:54 Plan discussed with Plan discussed with: Patient, Spouse Visit Coding Surgery Date of Service if different f: Jun 21, 2025 Billing Provider: ADAM ROLDAN MD Surgery Visit Codes: [id number] INP/OBS CARE(HIGH) ADAM ROLDAN MD Jun 21, 2025 10:12
--- NOTE | 2025-06-21 10:54 | DVHPN2 ---
Progress Note - Dictate Date Seen: Jun 21, 2025 Medical Necessity Reason Pt with a Central, PICC or Fol: No Subjective Feels well this morning vital signs Vital Sign Date Time Temp Pulse Resp B/P (MAP) Pulse Ox O2 Delivery O2 Flow Rate FiO2 06/21/25 09:09 97.9 82 21 177/93 (121) 97 97.9 06/20/25 20:00 Room Air* 0 21 Total Intake and Output 06/20/25 06/20/25 06/21/25 14:59 22:59 06:59 Intake Total 150 ml 0 ml Output Total 325 ml Balance 150 ml -325 ml medications Current Medications Medications Dose Ordered Sig/Feng Route Start Time Stop Time Status Last Admin Dose Admin Ceftriaxone Sodium 50 ml @ 100 mls/hr DAILY@09 IV 06/18/25 09:00 06/21/25 09:18 100 MLS/HR Metronidazole 100 ml @ 100 mls/hr Q8HR IV 06/17/25 15:30 06/21/25 05:11 100 MLS/HR Mycophenolate Mofetil 500 mg BID PO 06/17/25 22:00 Patient Own Medication 1 DAILY PO 06/18/25 10:00 Acetaminophen 650 mg Q4HP PRN PO 06/17/25 17:30 Pantoprazole Sodium 40 mg BID IV 06/17/25 22:00 06/21/25 09:18 40 MG Hydralazine HCl 10 mg Q6HP PRN IV 06/18/25 15:15 06/21/25 06:09 10 MG Dextrose/Sodium Chloride 1,000 ml @ 125 mls/hr Q8H IV 06/20/25 18:15 06/21/25 01:25 125 MLS/HR Hydralazine HCl 10 mg Q6HR IV 06/21/25 12:00 objective Gen: nad, NG tube in place heent: nc/at, mmm lungs: cta anteriorly cvs: no rub abd: soft, bowel sounds diminished laboratory and microbiology Laboratory Tests 06/21/25 08:08 06/19/25 05:34 Test 06/21/25 08:08 Range/Units Serum Glucose 79 74-106 mg/dL Assessment/Plan IMP: 1) ESRD 2/2 hypoplastic kidneys - s/p kidney transplant 2006 2) Partial SBO 3) Obesity 4) Anemia 5) Volume depletion - improved REC: - patient to resume chronic oral anti rejection medications - noted plans for possible discharge - we will continue IV hydration until time of discharge. - discussed with the patient regarding increase ingestion of oral intake of fluids. Plan discussed with: Patient HECTOR NOLASCO MD Jun 21, 2025 10:53
--- NOTE | 2025-06-21 11:07 | DVHPNRES ---
Progress Note Date Seen: Jun 21, 2025 Resident Creating Document: SALLY TAYLOR RESIDENT Medical Necessity Reason Pt with a Central, PICC or Fol: No Subjective Review of Systems patient is a 44-year-old male with past medical history of hypoplastic kidneys s/p kidney transplant (2006, ), prior peritoneal dialysis and hemodialysis, and history of small bowel obstruction requiring laparotomy in 2013. Patient moved to the area 1.5 months ago and has been taking mycophenolate 1 g BID and sirolimus 2 mg daily with good adherence. patient states that his last bowel movement was on Wednesday, had nausea, vomiting and abdominal distention with pain. Surgery was consulted. Surgery recommended NG tube, NPO, no narcotics, and possible small bowel follow-through. He was started on ceftriaxone and metronidazole. Patient states that he has passed flatus and had bowel movements at home and in the ED. Denies any fever, chills, shortness of breath, chest pain. Past surgical history: Kidney transplant in 2006, exploratory laparotomy in 2013, cholecystectomy Family history: reviewed, Noncontributory Personal history: Denies smoking, alcohol, drug use lives with: Family Home medications: Mycophenolate 1 g b.i.d., sirolimus 2 mg daily. 06/18/2025: Patient seen at bedside. Patient complains of epigastric pain on palpation, denies any nausea, vomiting. Patient has NG tube with low intermittent suction. Patient denies passing gas or having a bowel movement. patient states his last bowel movement was on Wednesday, does complain of heartburn, patient is to get small bowel series. Urinalysis positive for UTI but patient denies any dysuria, hematuria, burning sensation in urine 06/19/2025: Patient seen at bedside. patient states that he has not had a bowel movement, is not passing gas. Small bowel series to be done. 06/20/25: Patient seen at bedside. Patient has passed gas and had a liquid bowel movement. Small-bowel series done. 06/21/25: Patient Seen at bedside. Patient has passed gas and had 2 bowel movements. surgery signed off for discharge. Started on clear liquid diet. Advance diet as tolerated. Objective vital signs Vital Sign Date Time Temp Pulse Resp B/P (MAP) Pulse Ox O2 Delivery O2 Flow Rate FiO2 06/21/25 09:09 97.9 82 21 177/93 (121) 97 97.9 06/20/25 20:00 Room Air* 0 21 Total Intake and Output 06/20/25 06/20/25 06/21/25 15:00 23:00 07:00 Intake Total 150 ml 0 ml Output Total 325 ml Balance 150 ml -325 ml medications Current Medications Medications Dose Ordered Sig/Feng Route Start Time Stop Time Status Last Admin Dose Admin Ceftriaxone Sodium 50 ml @ 100 mls/hr DAILY@09 IV 06/18/25 09:00 06/21/25 09:18 100 MLS/HR Metronidazole 100 ml @ 100 mls/hr Q8HR IV 06/17/25 15:30 06/21/25 05:11 100 MLS/HR Mycophenolate Mofetil 500 mg BID PO 06/17/25 22:00 Patient Own Medication 1 DAILY PO 06/18/25 10:00 Acetaminophen 650 mg Q4HP PRN PO 06/17/25 17:30 Pantoprazole Sodium 40 mg BID IV 06/17/25 22:00 06/21/25 09:18 40 MG Hydralazine HCl 10 mg Q6HP PRN IV 06/18/25 15:15 06/21/25 06:09 10 MG Dextrose/Sodium Chloride 1,000 ml @ 125 mls/hr Q8H IV 06/20/25 18:15 06/21/25 01:25 125 MLS/HR Hydralazine HCl 10 mg Q6HR IV 06/21/25 12:00 Examination General: Patient alert and oriented in person, place and time. Patient following commands. HEENT: Normocephalic, atraumatic, moist mucous membranes Respiratory/pulmonary: Clear lungs bilaterally, vesicular murmurs present in almost all lung dunlap, no associated crackles or wheezes. Cardiovascular: Normal heart sounds S1 and S2 with no associated murmurs Abdomen: abdomen distended, epigastric tenderness on palpation, hypoactive bowel sounds. Extremities: There is no peripheral edema present at the lower extremities. Peripheral Pulses: 3+ Radial (R). 3+ Radial (L). 3+ Dorsalis pedis (R). 3+ Dorsalis pedis(L) Skin: No rashes or pruritus, there is no sacral edema present at this time. Neurological: Intact cranial nerves with no focal neurologic deficits laboratory and microbiology Laboratory Tests 06/21/25 08:08 06/19/25 05:34 Test 06/21/25 08:08 Range/Units Serum Glucose 79 74-106 mg/dL Microbiology Date/Time Source Procedure Growth Status 06/17/25 13:19 Blood Blood Culture - Preliminary NO GROWTH AFTER 72 HOURS OF INCUBATION. Resulted Problem List/Assessment/Plan Problem List/Assessment/Plan # sepsis due to small bowel obstruction - CT abdomen shows small bowel obstruction with a transition point in the right lower quadrant adjacent to the right renal transplant, and right femoral head sclerosis suggestive of avascular necrosis. - surgery consulted - continue ceftriaxone and metronidazole, - NG tube was placed with intermittent suction - NPO - Surgery recommends conservative management with small bowel follow-through. - WBC trending down - blood culture negative # status post Right kidney transplant # rule out acute rejection # ? PAI on CKD # immunocompromised state - on sirolimus, mycophenolate - renal ultrasound showed preserved graft flow without stenosis or hydronephrosis - strict I&O - Avoid nephrotoxic drugs - Nephrology consulted # right femoral head sclerosis - suggestive of avascular necrosis - Shown on CT scan # polysubstance abuse disorder UDS positive for opiates # obesity BMI 44.8 - patient counseled on diet, exercise, lifestyle modifications for 18 minutes PPI prophylaxis: Protonix DVT prophylaxis: ambulatory Goals of care addressed with the patient for more than 27 minutes: Full code status Case discussed with Dr. Marie , patient and nurse Plan discussed with: Patient My Orders My Orders Orders - SALLY TAYLOR Procedure Category Date Status Time Hydralazine Injection PHA 06/21/25 In Process (Apresoline Inject 12:00 Visit Coding STANDARD RES Billing Provider: BHAVANA MARIE MD Date of Service if different f: Jun 21, 2025 Common Visit Codes: [id number] INP/OBS CARE(HIGH) SALLY TAYLOR Jun 21, 2025 11:07
[2025-06-21] MEDS ORDERED: hydrALAZINE HCL 20 MG/ML VL IV SCH (12:00)
[2025-06-22 01:00] VITALS: BP 131/52; PULSE 73; RESP 16; TEMP 97.8; O2SAT 96
[2025-06-22 05:00] VITALS: BP 118/79; PULSE 61; RESP 16; TEMP 97.9; O2SAT 97
[2025-06-22 05:59] LABS: Hematocrit 39.0 % (41.0-53.0); Hemoglobin 13.0 g/dL (13.5-17.5); Mean Corpuscular Hemoglobin 27.2 pg (28.0-32.0); Mean Corpuscular Volume 81.6 fL (80.0-100.0); Nucleated Red Blood Cells % 0.0 %
[2025-06-22 06:08] LABS: Anion Gap 10 (5-15); Carbon Dioxide 25 mmol/L (20-31); Chloride 107 mmol/L (98-107); Sodium 142 mmol/L (136-145)
[2025-06-22 06:14] LABS: BUN/Creatinine Ratio 9.3 (10.0-20.0); Blood Urea Nitrogen 21 mg/dL (9-23); Glucose 102 mg/dL (74-106)
[2025-06-22 06:23] LABS: Calcium 8.6 mg/dL (8.7-10.4); Potassium 3.3 mmol/L (3.5-5.1)
[2025-06-22 08:00] VITALS: O2SAT 97
[2025-06-22] MEDS: POTASSIUM CHL 20MEQ/100ML 100 ML IV ONE (08:07)
[2025-06-22 08:30] VITALS: BP 134/75; PULSE 68; RESP 19; TEMP 98.1; O2SAT 97
[2025-06-22] MEDS: PANTOPRAZOLE 40 MG/10 ML VIAL INJ IV SCH (09:18)
[2025-06-22] MEDS ORDERED: NIFE1TAB30 PO (11:46)
[2025-06-22] MEDS ORDERED: POLY33505 PO (11:46)
--- NOTE | 2025-06-22 11:46 | DVHDSRES ---
Discharge Summary Date of Admission Resident Creating Document: SALLY TAYLOR Jun 17, 2025 at 15:23 Date of Discharge: Jun 22, 2025 Admitting Diagnosis Small-bowel obstruction Labs/Diagnostic Data: Laboratory Results Test 06/22/25 05:33 06/18/25 03:08 06/17/25 20:35 06/17/25 13:35 White Blood Count 7.1 10^3/uL (4.4-10.8) Red Blood Count 4.78 10^6/uL (4.5-5.90) Hemoglobin 13.0 g/dL (13.5-17.5) Hematocrit 39.0 % (41.0-53.0) Mean Corpuscular Volume 81.6 fL (80.0-100.0) Mean Corpuscular Hemoglobin 27.2 pg (28.0-32.0) Mean Corpuscular Hemoglobin Concent 33.3 g/dL (32.0-36.0) Red Cell Distribution Width 14.1 % (11.8-14.3) Platelet Count 193 10^3/uL (140-450) Mean Platelet Volume 9.2 fL (6.9-10.8) Neutrophils (%) (Auto) 69.0 % (37.0-80.0) Lymphocytes (%) (Auto) 16.7 % (10.0-50.0) Monocytes (%) (Auto) 11.1 % (0.0-12.0) Eosinophils (%) (Auto) 2.7 % (0.0-7.0) Basophils (%) (Auto) 0.5 % (0.0-2.0) Neutrophils # (Auto) 4.9 10 ^3/uL (1.6-8.6) Lymphocytes # (Auto) 1.2 10 ^3/uL (0.4-5.4) Monocytes # (Auto) 0.8 10 ^3/uL (0-1.3) Eosinophils # (Auto) 0.2 10 ^3/uL (0-0.8) Basophils # (Auto) 0 10 ^3/uL (0-0.2) Nucleated Red Blood Cells 0.0 % Sodium Level 142 mmol/L (136-145) Potassium Level 3.3 mmol/L (3.5-5.1) Chloride Level 107 mmol/L (98-107) Carbon Dioxide Level 25 mmol/L (20-31) Anion Gap 10 (5-15) Blood Urea Nitrogen 21 mg/dL (9-23) Creatinine 2.26 mg/dL (0.700-1.30) Glomerular Filtration Rate Calc 36 mL/min (>90) BUN/Creatinine Ratio 9.3 (10.0-20.0) Serum Glucose 102 mg/dL (74-106) Calcium Level 8.6 mg/dL (8.7-10.4) Prothrombin Time 10.5 sec (9.3-11.8) Prothrombin Time INR 0.99 (0.9-1.15) Activated Partial Thromboplast Time 28.8 SEC (24.5-34.5) Lactic Acid Level 1.0 mmol/L (0.4-2.0) Phosphorus Level 3.1 mg/dL (2.4-5.1) Magnesium Level 2.0 mg/dL (1.6-2.6) Total Bilirubin 0.6 mg/dL (0.2-1.0) Aspartate Amino Transferase (AST) 15 U/L (13-40) Alanine Aminotransferase (ALT) 13 U/L (7-40) Alkaline Phosphatase 148 U/L (46-116) Total Protein 6.2 g/dL (5.7-8.2) Albumin 3.6 g/dL (3.2-4.8) Thyroid Stimulating Hormone (TSH) 1.47 uIU/mL (0.55-4.78) Urine Color Light-yellow (Yellow) Urine Clarity Clear (Clear) Urine pH 6.0 (5.0-9.0) Urine Specific Abie 1.018 (1.001-1.035) Urine Protein 3+ (Negative) Urine Ketones Negative (Negative) Urine Blood 1+ /uL (Negative) Urine Nitrite 1+ (Negative) Urine Bilirubin Negative (Negative) Urine Urobilinogen Normal mg/dL (Negative) Urine Leukocyte Esterase 1+ /uL (Negative) Urine RBC 3 /hpf (0 - 3) Urine Microscopic WBC 59 /HPF (0-3) Urine Squamous Epithelial Cells Few /hpf (<5) Urine Bacteria Many /hpf (None Seen) Urine Hyaline Casts Few /lpf (0 - 2) Urine Glucose 1+ mg/dL (Normal) Urine Opiates Screen Pos (NEGATIVE) Urine Fentanyl Screen Neg (NEGATIVE) Urine Barbiturates Screen Neg (NEGATIVE) Urine Phencyclidine Screen Neg (NEGATIVE) Urine Amphetamines Screen Neg (NEGATIVE) Urine Benzodiazepines Screen Neg (NEGATIVE) Urine Cocaine Screen Neg (NEGATIVE) Urine Cannabinoids Screen Neg (NEGATIVE) Hemoglobin A1c 5.5 % A1C (<5.7) Test 06/17/25 11:35 Troponin I High Sensitivity < 3 ng/L (</=54) Lipase 37 U/L (12-53) Other Laboratory Tests 06/22/25 05:33 Brief Hx & Hospital Course: patient is a 44-year-old male with past medical history of hypoplastic kidneys s/p kidney transplant (2006, ), prior peritoneal dialysis and hemodialysis, and history of small bowel obstruction requiring laparotomy in 2013. Patient moved to the area 1.5 months ago and has been taking mycophenolate 1 g BID and sirolimus 2 mg daily with good adherence. patient states that his last bowel movement was on Wednesday, had nausea, vomiting and abdominal distention with pain. Surgery was consulted. Surgery recommended NG tube, NPO, no narcotics, and possible small bowel follow-through. He was started on ceftriaxone and metronidazole. Patient states that he has passed flatus and had bowel movements at home and in the ED. Denies any fever, chills, shortness of breath, chest pain. Past surgical history: Kidney transplant in 2006, exploratory laparotomy in 2013, cholecystectomy Family history: reviewed, Noncontributory Personal history: Denies smoking, alcohol, drug use lives with: Family Home medications: Mycophenolate 1 g b.i.d., sirolimus 2 mg daily. Brief hospital course: Patient complains of epigastric pain on palpation, denies any nausea, vomiting. Patient has NG tube with low intermittent suction. Patient denies passing gas or having a bowel movement. patient states his last bowel movement was on Wednesday, does complain of heartburn, patient is to get small bowel series. Urinalysis positive for UTI . Patient has sepsis due to small bowel obstruction. CT abdomen showed small bowel obstruction with a transition point in the right lower quadrant adjacent to the right renal transplant, and right femoral head sclerosis suggestive of avascular necrosis. surgery was consulted, patient was started on ceftriaxone and metronidazole. NG tube was placed with intermittent suction. Patient was kept on NPO and surgery recommended conservative management with small-bowel follow-through. Blood culture was negative. Patient is status post right kidney transplant on sirolimus, mycophenolate. renal ultrasound showed preserved graft flow without stenosis or hydronephrosis. patient kept on strict I&O, avoid nephrotoxic drugs,. Nephrology was consulted. Patient had right femoral head sclerosis showed on CT scan. Patient has polysubstance abuse disorder UDS was positive for opiates. Patient is obese with BMI of 44.8 and was counseled on diet, exercise, lifestyle modifications for 18 minutes. Patient is stable for discharge has past multiple bowel movements and has passed gas. Patient is to follow-up with discharge Clinic and PCP in 1 week. Patient is to take soft diet for 5 days and advance as tolerated. Patient understood his discharge plan and has agreed. General: Patient alert and oriented in person, place and time. Patient following commands. HEENT: Normocephalic, atraumatic, moist mucous membranes Respiratory/pulmonary: Clear lungs bilaterally, vesicular murmurs present in almost all lung [place], no associated crackles or wheezes. Cardiovascular: Normal heart sounds S1 and S2 with no associated murmurs Abdomen: abdomen distended, epigastric tenderness on palpation, hypoactive bowel sounds. Extremities: There is no peripheral edema present at the lower extremities. Peripheral Pulses: 3+ Radial (R). 3+ Radial (L). 3+ Dorsalis pedis (R). 3+ Dorsalis pedis(L) Skin: No rashes or pruritus, there is no sacral edema present at this time. Neurological: Intact cranial nerves with no focal neurologic deficits Operations or Procedures ORDERING PHYSICIAN: YURI SANTIAGO MD PROCEDURE(s): ABPL - CT AB PEL WO CON-NO ORAL OR IV REASON: abdominal pain ORDER NUMBER(s): [id number], ACCESSION NUMBER(s): [id number] Exam: CT CT AB PEL WO CON-NO ORAL OR IV History: abdominal pain Comparison Study: None Technique: Multidetector spiral CT of the abdomen and pelvis was performed from lung bases to pubic symphysis. Imaging was performed without intravenous contrast. Coronal and sagittal multiplanar reformats were obtained from the axial data set by the technologist. Radiation Dose : 1. Abdomen/Pelvis: CTDIvol 24.97 mGy, DLP 1428.54 mGy*cm. Findings: Evaluation of vasculature and solid organs is limited due to lack of intravenous contrast use. Lung Bases: Lung bases are clear. Visualized portions of the heart and pericardium are unremarkable. Liver: The liver is normal in size. No focal lesions. Gallbladder and Biliary Tree: The gallbladder is surgically absent. No intrahepatic or extrahepatic biliary ductal dilatation. Spleen: Unremarkable Pancreas: The pancreas is grossly unremarkable. Adrenal Glands: Unremarkable Kidneys: Bilateral [place] renal atrophy. Right lower quadrant renal transplant. No hydronephrosis. GI tract: The stomach is grossly normal in appearance. There are dilated fluid- filled small bowel loops measuring up to 3.6 cm. There is abrupt transition to collapsed small bowel loops in the right lower quadrant indicating a transition point. The transition is adjacent to the right renal transplant. Scattered stool throughout the colon. No acute appendicitis. Peritoneum/mesentery/retroperitoneum. There is fat stranding in the right lower quadrant. No evidence of free intraperitoneal air. No ascites. No evidence of suspicious lymphadenopathy. Abdominal Wall: Unremarkable. Vasculature: The visualized abdominal aorta is normal in size and caliber. Evaluation of abdominal and pelvic vessels is limited due to lack of intravenous contrast. Urinary Bladder: Grossly unremarkable for degree of distention. Pelvic Organs: Unremarkable Musculoskeletal: No aggressive focal bony lesions, acute fractures or dislocation. Sclerosis in the right femoral head. IMPRESSION: 1. Small bowel obstruction with transition point in the right lower quadrant adjacent to the right renal transplant. 2. Right femoral head sclerosis may represent avascular necrosis. 3. No hydronephrosis or acute abnormality in the right lower quadrant renal transplant. 4. Cholecystectomy. ATED BY: ANNIE WILSON MD DICTATED DATE/TIME: 06/17/25 1301 SIGNED BY: ANNIE WILSON MD SIGNED DATE/TIME: 06/17/25 1301 CC: ORDERING PHYSICIAN: DORON NEVES RESIDENT PROCEDURE(s): CXRP - CHEST PORTABLE REASON: NG TUBE PLACEMENT VERIFICATION ORDER NUMBER(s): [id number], ACCESSION NUMBER(s): [id number] EXAM: XY CHEST PORTABLE HISTORY: NG TUBE PLACEMENT VERIFICATION TECHNIQUE: 1 view of the chest COMPARISON: None FINDINGS/IMPRESSION: LUNGS: No pleural effusion, consolidation, or pneumothorax. MEDIASTINUM: Unremarkable. BONES: No acute osseous abnormality. OTHER: Enteric tube extending into the proximal stomach. ATED BY: DESHAWN WILLIAMSON MD DICTATED DATE/TIME: 06/17/251704 SIGNED BY: DESHAWN WILLIAMSON MD SIGNED DATE/TIME: 06/17/251704 CC: ORDERING PHYSICIAN: ADAM ROLDAN MD PROCEDURE(s): RENTRANS - Renal Transplant REASON: Transplant evaluation ORDER NUMBER(s): [id number], ACCESSION NUMBER(s): [id number] INDICATION: Transplant evaluation TECHNIQUE: Multiple real-time, duplex, and color Doppler sonographic images of the kidney and renal vasculature were obtained. Color flow and spectral waveform analysis was performed. COMPARISON: None FINDINGS: The transplant kidney is located in the right iliac fossa. It measures 13.5 x 6.9 x 5.7 cm in length. The renal contour, cortical thickness, and echogenicity are normal. There no masses, calcifications, hydronephrosis, or perinephric fluid identified. The vessels were interrogated with color and duplex Doppler. Peak systolic velocity in the transplanted renal artery was measured at 191 cm/sec near the anastomosis. End-diastolic velocity measures 23.2 cm/sec near the anastomosis. Transplant renal vein velocity measured 14.1 cm/sec. IMPRESSION: 1. Right renal transplant kidney appears within normal limits with no hydronephrosis or other abnormality. 2. Peak systolic velocities at the anastomosis of the transplant renal artery is within normal limits. No evidence of stenosis or thrombosis in the transplant renal vein. ATED BY: DOC LIMA DO DICTATED DATE/TIME: 06/17/251752 SIGNED BY: DOC LIMA DO SIGNED DATE/TIME: 06/17/251752 CC: ORDERING PHYSICIAN: SALLY TAYLOR PROCEDURE(s): SMBG - SMALL BOWEL SERIES-W GASTROGRA REASON: bowel follow though ORDER NUMBER(s): [id number], ACCESSION NUMBER(s): [id number] PROCEDURE: XY SMALL BOWEL SERIES-W GASTROGRA Reason for study/Clinical History: bowel follow though. Small-bowel obstruction. Comparison Study: CT dated 06/17/2025. TECHNIQUE: Single contrast small bowel series performed. Patent Counsel radiographs of the abdomen were obtained prior to GI contrast administration. 240 mL Gastroview was administered. FINDINGS/IMPRESSION: Patent Counsel radiographs of the abdomen demonstrate the enteric tube reaching the body of the stomach. Nonspecific bowel gas pattern with gas-filled nondilated small bowel loops and gas and moderate stool in the colon. Contrast was injected through the enteric tube into the stomach and passed into the small bowel without delay. Contrast reached the colon at 3 hours after initial administration. Contrast is identified within the colon by 3 hours. This represents a mildly delayed bowel transit time. Findings may be due to ileus or partial obstruction. ATED BY: DOC LIMA DO DICTATED DATE/TIME: 06/21/25928 SIGNED BY: DOC LIMA DO SIGNED DATE/TIME: 06/21/25928 CC: Condition at Discharge: Stable Final Diagnosis/Problems List # sepsis due to small bowel obstruction # status post Right kidney transplant # rule out acute rejection # ? PIA on CKD # immunocompromised state # right femoral head sclerosis # polysubstance abuse disorder # Hypokalemia # obesity BMI 44.8 Discharge Disposition: Home Discharge Instruct/Medications Diet: See Comment Diet comment: advance diet after 5 days of soft diet Activity: No Restrictions, As Tolerated Follow Up/Referral: follow up with D/C clinic in 1 week follow up with PCP Medications: as per EMR Discharge Statement: "Patient was advised to return to the ER or call 911 if any headaches, dizziness, shortness of breath, chest pain, abdominal pain, bleeding, fevers, or worsening of medical condition. Patient was counseled about treatment plan, medications, possible side effects, patientverbalized understanding. All questions were answered to the best of my ability. This discharge took greater then 30 minutes in planning, reviewing documentation, counseling the patient, and discussing with other team members." ASSESSMENT ASSESSMENT Assessment partiall SBO Visit Coding STANDARD RES Billing Provider: BHAVANA MARIE MD Date of Service if different f: Jun 22, 2025 Common Visit Codes: 07364-VNC/OBS DISCH DAY >30min SALLY TAYLOR Jun 22, 2025 11:46
[2025-06-22 12:30] VITALS: BP 137/86; PULSE 75; RESP 18; TEMP 98.4; O2SAT 97
[2025-06-22 12:57] VITALS: BP 134/75; PULSE 75; RESP 18; TEMP 36.7; O2SAT 97
--- NOTE | 2025-06-22 14:16 | DVHPN2 ---
Progress Note Date Seen: Jun 22, 2025 Medical Necessity Reason Pt with a Central, PICC or Fol: No Subjective Review of Systems Pt states he will be discharged home today Patient reports: No new complaints, Feels better Objective vital signs Vital Sign Date Time Temp Pulse Resp B/P (MAP) Pulse Ox O2 Delivery O2 Flow Rate FiO2 06/22/25 12:57 36.7 75 18 97 06/22/25 12:30 137/86 (103) 06/22/25 08:00 Room Air* 0 21 Total Intake and Output 06/21/25 06/21/25 06/22/25 15:00 23:00 07:00 Intake Total 1100 ml 800 ml Balance 1100 ml 800 ml medications Current Medications Medications Dose Ordered Sig/Feng Route Start Time Stop Time Status Last Admin Dose Admin Ceftriaxone Sodium 50 ml @ 100 mls/hr DAILY@09 IV 06/18/25 09:00 06/22/25 09:18 100 MLS/HR Metronidazole 100 ml @ 100 mls/hr Q8HR IV 06/17/25 15:30 06/22/25 05:22 100 MLS/HR Mycophenolate Mofetil 500 mg BID PO 06/17/25 22:00 06/22/25 09:35 500 MG Patient Own Medication 1 DAILY PO 06/18/25 10:00 Acetaminophen 650 mg Q4HP PRN PO 06/17/25 17:30 Dextrose/Sodium Chloride 1,000 ml @ 125 mls/hr Q8H IV 06/20/25 18:15 06/22/25 10:15 125 MLS/HR Pantoprazole Sodium 40 mg DAILY IV 06/22/25 10:00 06/22/25 09:18 40 MG Nifedipine 60 mg DAILY PO 06/22/25 10:00 06/22/25 09:20 60 MG Examination Gen:Appears stated age, NAD Lungs: Bilateral air entry, no rales Heart: RRR, normal S1 and S2 Ext: No edema Neuro: Alert and oriented x 4 laboratory and microbiology Laboratory Tests 06/22/25 05:33 Test 06/22/25 05:33 Range/Units Serum Glucose 102 74-106 mg/dL Microbiology Date/Time Source Procedure Growth Status 06/17/25 13:19 Blood Blood Culture - Final NO GROWTH AFTER 5 DAYS OF INCUBATION. Complete Labs and/or images reviewed: Labs reviewed by me Problem List/Assessment/Plan Problem List/Assessment/Plan IMP: 1) ESRD 2/2 hypoplastic kidneys - s/p kidney transplant 2006 2) Partial SBO 3) Obesity 4) Anemia 5) Volume depletion - improved REC: - Continue increased oral fluid intake - Continue chronic oral anti rejection medications - Strict I&Os - Follow up as outpt within 1-2 weeks after discharge Plan discussed with: Patient Dietary Evaluation Review Comments: Nutrition Recommendation: 1) Nephro-claritza 1 tab daily 2) Renal specific 70gm protein soft diet 3) Monitor PO intake, lab values, weight trend, and I/O Expected Outcomes/Goals: GI symptoms to improve Intake to meet >75% estimated needs Lab values to improve FU 3-5 days ROBBI ALVAREZ Jun 22, 2025 14:16
== END 2025-06-22 16:52 | disposition home or self-care (01) | DRG 720 ==
LOC: ER 10:38 → OVERFLOW 15:23 → CENTRAL 06-18 10:30
PROVIDERS: ADMIT Student in an Organized Health Care Education/Training Program; ATTEND Student in an Organized Health Care Education/Training Program
PROC: 0D9670Z Drainage of Stomach with Drainage Device, Via Natural or Artificial Opening (ICD-10-PCS; principal; 2025-06-17)
DX: A41.9 Sepsis, unspecified organism (principal); K56.600 Partial intestinal obstruction, unspecified as to cause; T86.13 Kidney transplant infection; D84.89 Other immunodeficiencies; Q60.4 Renal hypoplasia, bilateral; Z94.0 Kidney transplant status; N17.9 Acute kidney failure, unspecified; E66.9 Obesity, unspecified; F11.10 Opioid abuse, uncomplicated; D64.9 Anemia, unspecified; E86.9 Volume depletion, unspecified; N18.30 Chronic kidney disease, stage 3 unspecified; E87.6 Hypokalemia; Z90.49 Acquired absence of other specified parts of digestive tract; Z68.41 Body mass index [BMI] 40.0-44.9, adult; Z87.19 Personal history of other diseases of the digestive system
CPT/HCPCS: 36415; 71045; 74176; 74250; 76776; 80048; 80053; 80307; 81001; 83036; 83605; 83690; 83735; 84100; 84443; 84484; 85025; 85610; 85730; 87040; 96361; 96365; 96375; 99291; G0378; J2405; J2470; J3480; J3490; J7517